=== PATIENT | female | born 1955 | race Caucasian/White ===

== ENCOUNTER 2021-01-18 13:35 | Inpatient (IN) | payer MEDICARE, MEDICAID ==
[2021-01-18 14:47] LABS: #Basophils 0.1 10x3/uL (0.0-0.2); #Eosinphils 0.2 10x3/uL (0.0-0.5); #Monocytes 0.5 10x3/uL (0.0-1.1); #Neutrophils 7.1 10x3/uL (1.5-8.4); %Basophils 0.9 % (0.0-2.0); %Eosinophils 2.3 % (0.0-6.0); %Lymphocytes 10.7 % (18.0-47.0); %Monocytes 5.9 % (0.0-10.0); %Neutrophils 79.4 % (40.0-75.0); Hemoglobin 14.4 g/dL (12.0-15.5); Mean Corpuscular HGB CONC 33.5 g/dL (32.0-36.0); Mean Corpuscular Hemoglobin 27.3 pg (27.0-33.0); Mean Corpuscular Volume 81.6 fl (81.6-98.3); Mean Platelet Volume 9.9 fl (7.4-10.4); Platelet Count 198 10x3/uL (150-450); RBC Distribution Width 15.5 % (11.5-14.5); Red Blood Cell (RBC) Count 5.27 10x6/uL (3.90-5.03); White Blood Cell (WBC) Count 8.9 10x3/uL (3.5-10.5)
[2021-01-18 14:55] LABS: ALT (SGPT) 15 U/L (8-55); AST (SGOT) 27 U/L (5-34); Albumin 3.3 g/dL (3.4-4.8); Alkaline Phosphatase 130 U/L (40-110); Anion Gap 17 mmol/L (10-20); BUN (Urea Nitrogen) 33 mg/dL (9.8-20.1); Bilirubin, Total 0.8 mg/dL (0.2-1.2); Calc. Creatinine Clearance 0 mL/min (70-130); Calcium 8.5 mg/dL (7.8-10.44); Carbon Dioxide 17 mmol/L (23-31); Chloride 99 mmol/L (98-107); Globulin 2.4 g/dL (2.4-3.5); Glucose 99 mg/dL (80-115); Potassium 5.8 mmol/L (3.5-5.1); Protein, Total 5.7 g/dL (5.8-8.1); Sodium 127 mmol/L (136-145)
[2021-01-18 15:02] LABS: Burr Cells SLIGHT = 2-5 cells (100X) (0-1/hpf); Elliptocytes SLIGHT = 2-5 cells (100X) (0-1/hpf); Large Platelets SLIGHT; Platelet Clumps SLIGHT
[2021-01-18 16:28] LABS: Bilirubin Neg (Negative); Blood, Urine 150 (Negative); Clarity Cloudy (Clear); Glucose, Urine (Dipstick) Normal (Negative); Ketone, Urine 5 mg/dL (Negative); Leukocyte 500 (Negative); Nitrite Positive (Negative); Protein, Urine (Dipstick) 100 mg/dl (Neg-Trace); Urobilinogen Normal mg/dL (Less than 2)
[2021-01-18 16:37] LABS: Bacteria/HPF 4+ HPF (None Seen); RBC/HPF 0-3 HPF (0-3); Squamous Epithelial None Seen HPF (0-3); WBC/HPF Greater than 50 HPF (0-3)
[2021-01-18] MEDS ORDERED: Ondansetron PF 4 MG/2 ML Vial IVP PRN (17:41)
[2021-01-18] MEDS ORDERED: Senokot S 8.6-50 MG TAB PO PRN (17:41)
[2021-01-18] MEDS ORDERED: Haloperidol Lactate 5 MG/ML VIAL SLOW IVP PRN (17:45)
[2021-01-18] MEDS ORDERED: Calcium Chloride 1 GM/10 ML Abboject SYRINGE ONE (17:57)
[2021-01-18] MEDS ORDERED: Insulin Regular 300 UNITS/3 ML VIAL ONE (17:57)
[2021-01-18] MEDS: MEROPENEM 1 GM/50 ML 1 GM in Premix Bag 1 BAG IVPB SCH (21:12)
[2021-01-18] MEDS: Sodium Chloride 0.9% 1,000 ML IV SCH (21:13)
[2021-01-19 00:13] VITALS: BMI 29.9
[2021-01-19] MEDS: MEROPENEM 1 GM/50 ML 1 GM in Premix Bag 1 BAG IVPB SCH ×3 (05:38→21:03)
[2021-01-19 05:45] LABS: #Basophils 0.1 10x3/uL (0.0-0.2); #Eosinphils 0.2 10x3/uL (0.0-0.5); #Monocytes 0.5 10x3/uL (0.0-1.1); #Neutrophils 5.6 10x3/uL (1.5-8.4); %Basophils 0.9 % (0.0-2.0); %Eosinophils 2.6 % (0.0-6.0); %Lymphocytes 13.1 % (18.0-47.0); %Monocytes 6.5 % (0.0-10.0); %Neutrophils 76.4 % (40.0-75.0); Hemoglobin 14.5 g/dL (12.0-15.5); Mean Corpuscular HGB CONC 32.7 g/dL (32.0-36.0); Mean Corpuscular Hemoglobin 27.4 pg (27.0-33.0); Mean Corpuscular Volume 83.7 fl (81.6-98.3); Mean Platelet Volume 9.5 fl (7.4-10.4); Platelet Count 184 10x3/uL (150-450); RBC Distribution Width 15.8 % (11.5-14.5); Red Blood Cell (RBC) Count 5.29 10x6/uL (3.90-5.03); White Blood Cell (WBC) Count 7.4 10x3/uL (3.5-10.5)
[2021-01-19] MEDS: Sodium Chloride 0.9% 1,000 ML IV SCH (05:45)
[2021-01-19 05:47] LABS: ALT (SGPT) 15 U/L (8-55); AST (SGOT) 25 U/L (5-34); Alkaline Phosphatase 114 U/L (40-110); Anion Gap 17 mmol/L (10-20); BUN (Urea Nitrogen) 23 mg/dL (9.8-20.1); Calc. Creatinine Clearance 86 mL/min (70-130); Calcium 9.2 mg/dL (7.8-10.44); Carbon Dioxide 17 mmol/L (23-31); Chloride 106 mmol/L (98-107); Globulin 2.6 g/dL (2.4-3.5); Glucose 89 mg/dL (80-115); Potassium 5.6 mmol/L (3.5-5.1); Protein, Total 5.6 g/dL (5.8-8.1); Sodium 134 mmol/L (136-145)
[2021-01-19] MEDS ORDERED: FLU VACC QS2020-21(65YR UP)/PF 240 MCG/0.7 ML SYRINGE IM ONE (06:45)
[2021-01-19] MEDS ORDERED: Sodium Chloride 0.9% 1,000 ML IV SCH (10:09)
[2021-01-19 13:48] LABS: SARS-CoV-2 PCR by NAA Not Detected (NotDetected)
[2021-01-19] MEDS ORDERED: Acetaminophen/Codeine 30-300mg Tablet PO PRN (16:39)
[2021-01-19] MEDS: Ferrous Sulfate 325 MG TAB PO SCH (17:21)
[2021-01-19] MEDS ORDERED: traZODone HCl 50 MG TAB PO SCH (21:00)
[2021-01-19] MEDS ORDERED: Atorvastatin Calcium 10 MG TAB PO SCH (21:00)
[2021-01-19] MEDS ORDERED: Pregabalin 75 MG CAP PO SCH (21:00)
[2021-01-19] MEDS ORDERED: Cholecalciferol 1,000 UNITS (25 MCG) TAB PO SCH (21:00)
[2021-01-19] MEDS ORDERED: Calcium Carbonate 500 MG ChewTAB PO SCH (21:00)
[2021-01-19] MEDS: Metoprolol Tartrate 25 MG TAB PO SCH (21:03)
[2021-01-19] MEDS: busPIRone HCl 5 MG TAB PO SCH (21:03)
[2021-01-19] MEDS: Oxybutynin 5 MG TAB PO SCH (21:03)
[2021-01-20] MEDS ORDERED: guaiFENesin 100 MG/5 ML UDCUP ONE (00:51)
[2021-01-20] MEDS: guaiFENesin 100 MG/5 ML UDCUP PO PRN ×2 (00:55→11:21)
[2021-01-20] MEDS ORDERED: hydrALAZINE 20 MG/ML VIAL SLOW IVP SCH (01:30)
[2021-01-20] MEDS ORDERED: Levothyroxine Sodium 75 MCG TAB PO SCH (06:00)
[2021-01-20] MEDS: MEROPENEM 1 GM/50 ML 1 GM in Premix Bag 1 BAG IVPB SCH ×2 (06:14→14:47)
[2021-01-20 07:43] LABS: #Basophils 0.1 10x3/uL (0.0-0.2); #Eosinphils 0.3 10x3/uL (0.0-0.5); #Monocytes 0.7 10x3/uL (0.0-1.1); #Neutrophils 5.2 10x3/uL (1.5-8.4); %Basophils 1.2 % (0.0-2.0); %Eosinophils 3.5 % (0.0-6.0); %Lymphocytes 15.9 % (18.0-47.0); %Monocytes 9.4 % (0.0-10.0); %Neutrophils 69.6 % (40.0-75.0); Hemoglobin 13.8 g/dL (12.0-15.5); Mean Corpuscular HGB CONC 32.1 g/dL (32.0-36.0); Mean Corpuscular Hemoglobin 27.2 pg (27.0-33.0); Mean Corpuscular Volume 84.6 fl (81.6-98.3); Mean Platelet Volume 9.7 fl (7.4-10.4); Platelet Count 198 10x3/uL (150-450); RBC Distribution Width 15.7 % (11.5-14.5); Red Blood Cell (RBC) Count 5.08 10x6/uL (3.90-5.03); White Blood Cell (WBC) Count 7.4 10x3/uL (3.5-10.5)
[2021-01-20] MEDS ORDERED: Spironolactone 25 MG TAB PO SCH (08:00)
[2021-01-20 08:28] LABS: ALT (SGPT) 20 U/L (8-55); AST (SGOT) 39 U/L (5-34); Albumin 2.8 g/dL (3.4-4.8); Alkaline Phosphatase 109 U/L (40-110); Anion Gap 13 mmol/L (10-20); BUN (Urea Nitrogen) 16 mg/dL (9.8-20.1); Bilirubin, Total 0.7 mg/dL (0.2-1.2); Calc. Creatinine Clearance 79 mL/min (70-130); Calcium 8.9 mg/dL (7.8-10.44); Carbon Dioxide 15 mmol/L (23-31); Chloride 115 mmol/L (98-107); Globulin 2.7 g/dL (2.4-3.5); Glucose 112 mg/dL (80-115); Potassium 5.4 mmol/L (3.5-5.1); Protein, Total 5.5 g/dL (5.8-8.1); Sodium 138 mmol/L (136-145)
[2021-01-20] MEDS: Ferrous Sulfate 325 MG TAB PO SCH (08:45)
[2021-01-20] MEDS: Metoprolol Tartrate 25 MG TAB PO SCH (08:46)
[2021-01-20] MEDS: Oxybutynin 5 MG TAB PO SCH (08:46)
[2021-01-20] MEDS: busPIRone HCl 5 MG TAB PO SCH ×2 (08:47→14:53)
[2021-01-20] MEDS ORDERED: DULoxetine 30 MG CAP PO SCH (09:00)
[2021-01-20] MEDS ORDERED: Aspirin 81 mg Enteric Coated Tablet PO SCH (09:00)
[2021-01-20] MEDS ORDERED: Docusate 100 MG CAP PO SCH (09:00)
[2021-01-20] MEDS ORDERED: Lisinopril 2.5 MG TAB PO SCH (09:00)
[2021-01-20] MEDS ORDERED: Furosemide 40 MG TAB PO SCH (09:00)
[2021-01-20] MEDS ORDERED: Pregabalin 50 MG CAP PO SCH (09:00)
[2021-01-20] MEDS ORDERED: Ascorbic Acid 500 mg Chewable Tablet PO SCH (09:00)
[2021-01-20] MEDS ORDERED: Fluticasone Propionate Nasal Spray 16 gm Bottle NASAL SCH (09:00)
[2021-01-20] MEDS ORDERED: LIDOCAINE 4% PATCH TD SCH (09:00)
[2021-01-20 12:22] VITALS: BP 137/61; TEMP 97
== END 2021-01-20 16:06 | DRG 441 ==
LOC: CSHERS 13:35 → CSHTELE 19:34
PROVIDERS: ADMIT Family Medicine; ATTEND Family Medicine
DX: K72.90 Hepatic failure, unspecified without coma (principal); G92 Toxic encephalopathy; N39.0 Urinary tract infection, site not specified; E87.1 Hypo-osmolality and hyponatremia; I85.00 Esophageal varices without bleeding; E87.5 Hyperkalemia; Z88.6 Allergy status to analgesic agent; Z88.0 Allergy status to penicillin; Z20.822 Contact with and (suspected) exposure to COVID-19; Z86.16 Personal history of COVID-19; Z89.612 Acquired absence of left leg above knee
CPT/HCPCS: 36415; 36416; 51701; 70450; 71045; 80053; 81003; 81015; 82140; 84443; 84484; 85025; 87635; 93005; 96365; 96375; J0360; J1815; J1956; J2185; J7050; U0003; U0005

== ENCOUNTER 2021-02-02 08:50 | Observation (INO) | payer MEDICARE, MEDICAID ==
[2021-02-02 09:41] LABS: #Basophils 0.1 10x3/uL (0.0-0.2); #Eosinphils 0.5 10x3/uL (0.0-0.5); #Monocytes 0.4 10x3/uL (0.0-1.1); #Neutrophils 4.2 10x3/uL (1.5-8.4); %Basophils 1.1 % (0.0-2.0); %Eosinophils 7.6 % (0.0-6.0); %Monocytes 6.2 % (0.0-10.0); %Neutrophils 67.9 % (40.0-75.0); Hemoglobin 13.9 g/dL (12.0-15.5); Mean Corpuscular HGB CONC 31.4 g/dL (32.0-36.0); Mean Corpuscular Hemoglobin 27.3 pg (27.0-33.0); Mean Corpuscular Volume 86.8 fl (81.6-98.3); Mean Platelet Volume 10.4 fl (7.4-10.4); Platelet Count 164 10x3/uL (150-450); RBC Distribution Width 15.3 % (11.5-14.5); Red Blood Cell (RBC) Count 5.09 10x6/uL (3.90-5.03); White Blood Cell (WBC) Count 6.2 10x3/uL (3.5-10.5)
[2021-02-02 09:53] LABS: ALT (SGPT) 20 U/L (8-55); AST (SGOT) 30 U/L (5-34); Albumin 3.5 g/dL (3.4-4.8); Alkaline Phosphatase 145 U/L (40-110); Anion Gap 18 mmol/L (10-20); BUN (Urea Nitrogen) 20 mg/dL (9.8-20.1); Bilirubin, Total 1.1 mg/dL (0.2-1.2); Calc. Creatinine Clearance 0 mL/min (70-130); Carbon Dioxide 24 mmol/L (23-31); Chloride 108 mmol/L (98-107); Globulin 2.4 g/dL (2.4-3.5); Glucose 88 mg/dL (80-115); Potassium 4.1 mmol/L (3.5-5.1); Protein, Total 5.9 g/dL (5.8-8.1); Sodium 146 mmol/L (136-145)
[2021-02-02 09:54] LABS: Acetaminophen Less than 6.0 mcg/mL (10.0-30.0); Alcohol Less than 10 mg/dL (Less than 10); CK (CPK) 34 U/L (29-168); Salicylate Less than 8.0 mg/dL (15.0-30.0)
[2021-02-02 10:13] LABS: Bilirubin Neg (Negative); Blood, Urine 25 (Negative); Clarity Cloudy (Clear); Glucose, Urine (Dipstick) Normal (Negative); Ketone, Urine Negative (Negative); Leukocyte 500 (Negative); Nitrite Negative (Negative); Protein, Urine (Dipstick) 30 mg/dl (Neg-Trace); Specific Gravity, Urine 1.005 (1.002-1.036)
[2021-02-02 10:23] LABS: Amphetamine Not Detected (NotDetected); Barbiturates Screen Not Detected (NotDetected); Benzodiazepine Screen Not Detected (NotDetected); Cocaine Metabolite Screen Not Detected (NotDetected); Methadone Not Detected (NotDetected); Methamphetamine Not Detected (NotDetected); Opiate Screen Detected (NotDetected); Oxycodone Screen Not Detected (NotDetected); Phencyclidine (PCP) Not Detected (NotDetected); THC/Cannabinoid Screen Not Detected (NotDetected); Tricyclic Screen Not Detected (NotDetected)
[2021-02-02 10:42] LABS: Bacteria/HPF 3+ HPF (None Seen); RBC/HPF 0-3 HPF (0-3); Squamous Epithelial 0-3 HPF (0-3); WBC/HPF Greater than 50 HPF (0-3)
[2021-02-02] MEDS ORDERED: Acetaminophen 325 MG TAB PO PRN (11:29)
[2021-02-02] MEDS ORDERED: Senokot S 8.6-50 MG TAB PO PRN (11:29)
[2021-02-02] MEDS ORDERED: Ondansetron PF 4 MG/2 ML Vial IVP PRN (11:29)
[2021-02-02 12:27] LABS: SARS-CoV-2 NAA Rapid Test Not Detected (NotDetected)
[2021-02-02] MEDS ORDERED: Sodium Chloride 0.9% 1,000 ML IV SCH (13:00)
[2021-02-02 15:19] VITALS: BMI 31.6
[2021-02-02] MEDS: Atorvastatin Calcium 10 MG TAB PO SCH (22:04)
[2021-02-02] MEDS: Ferrous Sulfate 325 MG TAB PO SCH (22:04)
[2021-02-02] MEDS: Metoprolol Tartrate 25 MG TAB PO SCH (22:05)
[2021-02-03] MEDS ORDERED: guaiFENesin 100 MG/5 ML UDCUP PO SCH (01:00)
[2021-02-03 04:34] LABS: #Basophils 0.1 10x3/uL (0.0-0.2); #Eosinphils 0.3 10x3/uL (0.0-0.5); #Monocytes 0.5 10x3/uL (0.0-1.1); #Neutrophils 3.8 10x3/uL (1.5-8.4); %Basophils 1.2 % (0.0-2.0); %Eosinophils 4.7 % (0.0-6.0); %Lymphocytes 21.5 % (18.0-47.0); %Monocytes 7.6 % (0.0-10.0); %Neutrophils 64.8 % (40.0-75.0); Hemoglobin 12.3 g/dL (12.0-15.5); Mean Corpuscular HGB CONC 32.8 g/dL (32.0-36.0); Mean Corpuscular Hemoglobin 28.3 pg (27.0-33.0); Mean Corpuscular Volume 86.2 fl (81.6-98.3); Mean Platelet Volume 11.1 fl (7.4-10.4); Platelet Count 139 10x3/uL (150-450); RBC Distribution Width 15.4 % (11.5-14.5); Red Blood Cell (RBC) Count 4.35 10x6/uL (3.90-5.03); White Blood Cell (WBC) Count 5.9 10x3/uL (3.5-10.5)
[2021-02-03 04:44] LABS: ALT (SGPT) 14 U/L (8-55); AST (SGOT) 17 U/L (5-34); Albumin 2.8 g/dL (3.4-4.8); Alkaline Phosphatase 108 U/L (40-110); Anion Gap 13 mmol/L (10-20); BUN (Urea Nitrogen) 20 mg/dL (9.8-20.1); Bilirubin, Total 0.9 mg/dL (0.2-1.2); Calc. Creatinine Clearance 90 mL/min (70-130); Calcium 8.5 mg/dL (7.8-10.44); Carbon Dioxide 23 mmol/L (23-31); Chloride 113 mmol/L (98-107); Glucose 75 mg/dL (80-115); Protein, Total 4.8 g/dL (5.8-8.1); Sodium 145 mmol/L (136-145)
[2021-02-03] MEDS: Enoxaparin Sodium 40 MG/0.4 ML SYRINGE SC SCH (10:17)
[2021-02-03] MEDS: Ferrous Sulfate 325 MG TAB PO SCH ×2 (10:18→22:03)
[2021-02-03] MEDS: guaiFENesin 100 MG/5 ML UDCUP PO PRN ×2 (10:19→17:51)
[2021-02-03] MEDS: Metoprolol Tartrate 25 MG TAB PO SCH ×2 (10:19→22:03)
[2021-02-03] MEDS: Levothyroxine Sodium 75 MCG TAB PO SCH (10:22)
[2021-02-03] MEDS ORDERED: DULoxetine 30 MG CAP PO SCH (12:30)
[2021-02-03] MEDS ORDERED: Acetaminophen 325 MG TAB PO PRN (13:05)
[2021-02-03] MEDS ORDERED: Pregabalin 75 MG CAP PO SCH ×2 (13:15→21:00)
[2021-02-03] MEDS ORDERED: traZODone HCl 50 MG TAB PO SCH (21:00)
[2021-02-03] MEDS: Atorvastatin Calcium 10 MG TAB PO SCH (22:03)
[2021-02-03] MEDS: Pregabalin 75 MG CAP PO SCH (22:04)
[2021-02-04] MEDS ORDERED: LIDOCAINE 4% TD SCH (09:00)
[2021-02-04] MEDS ORDERED: DULoxetine 30 MG CAP PO SCH (09:00)
[2021-02-04] MEDS: Levothyroxine Sodium 75 MCG TAB PO SCH (10:11)
[2021-02-04] MEDS: Pregabalin 75 MG CAP PO SCH (10:12)
[2021-02-04] MEDS: Ferrous Sulfate 325 MG TAB PO SCH (10:13)
[2021-02-04] MEDS: Metoprolol Tartrate 25 MG TAB PO SCH (10:14)
[2021-02-04] MEDS: Enoxaparin Sodium 40 MG/0.4 ML SYRINGE SC SCH (10:15)
[2021-02-04] MEDS ORDERED: Lorazepam 2 MG/ML VIAL SLOW IVP SCH (13:30)
[2021-02-04 20:05] VITALS: BP 152/66; TEMP 98.2
== END 2021-02-04 15:48 | disposition home or self-care (01) ==
LOC: CSHERS 08:50 → CSHTELE 11:00 → UNDOADMOB 14:06 → CSHTELE 14:06 → INTOOBSV 14:06
PROVIDERS: ADMIT Internal Medicine; ATTEND Internal Medicine
DX: R41.82 Altered mental status, unspecified (principal); N39.0 Urinary tract infection, site not specified; K70.30 Alcoholic cirrhosis of liver without ascites; F32.9 Major depressive disorder, single episode, unspecified; F41.9 Anxiety disorder, unspecified; G89.29 Other chronic pain; I10 Essential (primary) hypertension; E03.9 Hypothyroidism, unspecified; Z79.899 Other long term (current) drug therapy; Z20.822 Contact with and (suspected) exposure to COVID-19
CPT/HCPCS: 51701; 70450; 71045; 80053; 80306; 80307; 82140 ×2; 82550; 83605; 84484; 85025; 87040; 93005; 96365; 96372 ×2; 96376 ×2; 99285; G0378 ×4; U0002; 36415; 81003; 81015; 84443; J1650; J1956

== ENCOUNTER 2021-03-02 13:28 | Inpatient (IN) | payer MEDICARE, MEDICAID ==
[2021-03-02 14:18] LABS: Actual Bicarbonate (HCO3a) 20.3 mEq/L (22-28); Base Excess (BEa) -2.5 mEq/L (-2.0 to +3.0); CO2 Tension 29.9 mmHg (35.0-45.0); Calcium, Ionized (arterial) 1.18 mmol/L (1.12-1.30); Carboxyhemoglobin (COHb) 0.9 gm% (0.0-3.0); Hemoglobin (Hb) 14.4 g/dL (12.0-16.0); O2 Tension (PaO2), arterial 100.2 mmHg (> 80.0); Puncture Site RBA; pH, Arterial 7.45 (7.35-7.45)
[2021-03-02 14:22] LABS: ALV-art Gradient 12.155 mmHg (0-20)
[2021-03-02 14:30] LABS: #Basophils 0.1 10x3/uL (0.0-0.2); #Eosinphils 0.3 10x3/uL (0.0-0.5); #Monocytes 0.6 10x3/uL (0.0-1.1); #Neutrophils 5.4 10x3/uL (1.5-8.4); %Eosinophils 3.5 % (0.0-6.0); %Lymphocytes 18.2 % (18.0-47.0); %Monocytes 8.2 % (0.0-10.0); %Neutrophils 68.8 % (40.0-75.0); Hemoglobin 14.2 g/dL (12.0-15.5); Mean Corpuscular HGB CONC 32.3 g/dL (32.0-36.0); Mean Corpuscular Hemoglobin 28.3 pg (27.0-33.0); Mean Corpuscular Volume 87.6 fl (81.6-98.3); Mean Platelet Volume 11.9 fl (7.4-10.4); Platelet Count 122 10x3/uL (150-450); RBC Distribution Width 15.9 % (11.5-14.5); Red Blood Cell (RBC) Count 5.01 10x6/uL (3.90-5.03); White Blood Cell (WBC) Count 7.8 10x3/uL (3.5-10.5)
[2021-03-02 15:01] LABS: Platelet Morphology Comment Appears Adequate
[2021-03-02 16:12] LABS: ALT (SGPT) 12 U/L (8-55); AST (SGOT) 19 U/L (5-34); Acetaminophen Less than 6.0 mcg/mL (10.0-30.0); Albumin 2.8 g/dL (3.4-4.8); Alcohol Less than 10 mg/dL (Less than 10); Alkaline Phosphatase 137 U/L (40-110); Anion Gap 15 mmol/L (10-20); BUN (Urea Nitrogen) 16 mg/dL (9.8-20.1); Bilirubin, Total 1.4 mg/dL (0.2-1.2); Calc. Creatinine Clearance 0 mL/min (70-130); Calcium 9.1 mg/dL (7.8-10.44); Carbon Dioxide 23 mmol/L (23-31); Chloride 113 mmol/L (98-107); Globulin 2.3 g/dL (2.4-3.5); Glucose 96 mg/dL (80-115); Magnesium 1.4 mg/dL (1.6-2.6); Potassium 4.1 mmol/L (3.5-5.1); Protein, Total 5.1 g/dL (5.8-8.1); Salicylate Less than 8.0 mg/dL (15.0-30.0); Sodium 147 mmol/L (136-145)
[2021-03-02] MEDS ORDERED: Magnesium 2 GM/50 ML BAG (IN WATER) ONE (16:50)
[2021-03-02] MEDS ORDERED: Ondansetron PF 4 MG/2 ML Vial IVP PRN (18:30)
[2021-03-02] MEDS ORDERED: Ondansetron ODT 4 MG TAB PO PRN (18:30)
[2021-03-02] MEDS ORDERED: cefTRIAXone\\ROCEPHIN 1 GM in Sodium Chloride 0.9% 100 ML IVPB SCH (18:45)
[2021-03-02] MEDS ORDERED: Azithromycin 500 MG in Sodium Chloride 0.9% 250 ML 250 ML IVPB SCH (18:45)
[2021-03-02 19:15] VITALS: BMI 23.7
[2021-03-02] MEDS: Sodium Chloride 0.9% 1,000 ML IV SCH (20:18)
[2021-03-02] MEDS: Atorvastatin Calcium 10 MG TAB PO SCH (20:20)
[2021-03-02 21:06] LABS: INR-International Normal Ratio 1.2; PTT 22.3 sec (22.0-33.0); Prothrombin Time 13.3 sec (9.5-12.1)
[2021-03-03 02:02] LABS: Bilirubin Neg (Negative); Blood, Urine 10 (Negative); Clarity Cloudy (Clear); Glucose, Urine (Dipstick) Normal (Negative); Ketone, Urine Negative (Negative); Leukocyte 25 (Negative); Nitrite Negative (Negative); Protein, Urine (Dipstick) 100 mg/dl (Neg-Trace); Urobilinogen Normal mg/dL (Less than 2); pH, Urine 6.5 (5.0-9.0)
[2021-03-03 03:17] LABS: Bacteria/HPF 4+ HPF (None Seen); RBC/HPF 0-3 HPF (0-3); Squamous Epithelial 0-3 HPF (0-3)
[2021-03-03 03:18] LABS: Transitional Epithelial 0-3 HPF (None Seen)
[2021-03-03 05:15] LABS: #Basophils 0.1 10x3/uL (0.0-0.2); #Eosinphils 0.3 10x3/uL (0.0-0.5); #Monocytes 0.5 10x3/uL (0.0-1.1); %Basophils 1.1 % (0.0-2.0); %Eosinophils 4.4 % (0.0-6.0); %Lymphocytes 22.7 % (18.0-47.0); %Monocytes 8.3 % (0.0-10.0); %Neutrophils 63.3 % (40.0-75.0); Hemoglobin 12.8 g/dL (12.0-15.5); Mean Corpuscular HGB CONC 31.4 g/dL (32.0-36.0); Mean Corpuscular Hemoglobin 28.1 pg (27.0-33.0); Mean Corpuscular Volume 89.5 fl (81.6-98.3); Mean Platelet Volume 11.1 fl (7.4-10.4); Platelet Count 130 10x3/uL (150-450); RBC Distribution Width 15.8 % (11.5-14.5); Red Blood Cell (RBC) Count 4.56 10x6/uL (3.90-5.03); White Blood Cell (WBC) Count 6.4 10x3/uL (3.5-10.5)
[2021-03-03 05:19] LABS: ALT (SGPT) 10 U/L (8-55); AST (SGOT) 15 U/L (5-34); Albumin 2.5 g/dL (3.4-4.8); Alkaline Phosphatase 114 U/L (40-110); Anion Gap 15 mmol/L (10-20); BUN (Urea Nitrogen) 17 mg/dL (9.8-20.1); Bilirubin, Total 1.1 mg/dL (0.2-1.2); Calc. Creatinine Clearance 68 mL/min (70-130); Calcium 8.5 mg/dL (7.8-10.44); Carbon Dioxide 21 mmol/L (23-31); Chloride 113 mmol/L (98-107); Glucose 82 mg/dL (80-115); Magnesium 1.8 mg/dL (1.6-2.6); Potassium 4.1 mmol/L (3.5-5.1); Protein, Total 4.5 g/dL (5.8-8.1); Sodium 145 mmol/L (136-145)
[2021-03-03] MEDS: Sodium Chloride 0.9% 1,000 ML IV SCH (06:25)
[2021-03-03] MEDS: Levothyroxine Sodium 75 MCG TAB PO SCH (06:25)
[2021-03-03] MEDS: Aspirin 81 mg Enteric Coated Tablet PO SCH (08:10)
[2021-03-03] MEDS: Enoxaparin Sodium 40 MG/0.4 ML SYRINGE SC SCH (08:10)
[2021-03-03] MEDS: Atorvastatin Calcium 10 MG TAB PO SCH (20:26)
[2021-03-03] MEDS: Metoprolol Tartrate 25 MG TAB PO SCH (20:26)
[2021-03-03 20:40] LABS: SARS-CoV-2 PCR by NAA Not Detected (NotDetected)
[2021-03-04] MEDS ORDERED: Labetalol HCl 100 MG/20 ML VIAL SLOW IVP SCH (01:00)
[2021-03-04] MEDS ORDERED: hydrALAZINE 20 MG/ML VIAL SLOW IVP SCH (03:45)
[2021-03-04] MEDS ORDERED: Nitroglycerin 0.4 MG TAB (25 Tab Bottle) ONE (05:20)
[2021-03-04] MEDS: Levothyroxine Sodium 75 MCG TAB PO SCH (05:34)
[2021-03-04] MEDS: Sodium Chloride 0.9% 1,000 ML IV SCH (07:39)
[2021-03-04] MEDS ORDERED: cloNIDine 0.1 MG TAB PO SCH (09:00)
[2021-03-04] MEDS ORDERED: Furosemide 40 MG TAB PO SCH (09:00)
[2021-03-04] MEDS: Enoxaparin Sodium 40 MG/0.4 ML SYRINGE SC SCH (09:05)
[2021-03-04] MEDS: Metoprolol Tartrate 25 MG TAB PO SCH (09:05)
[2021-03-04] MEDS: Aspirin 81 mg Enteric Coated Tablet PO SCH (09:05)
[2021-03-04 11:47] VITALS: BP 184/69; TEMP 97.9
== END 2021-03-04 12:11 | DRG 441 ==
LOC: CSHERS 13:28 → CSHTELE 19:10
PROVIDERS: ADMIT Family Medicine; ATTEND Family Medicine
DX: K72.90 Hepatic failure, unspecified without coma (principal); J18.9 Pneumonia, unspecified organism; J96.01 Acute respiratory failure with hypoxia; E87.0 Hyperosmolality and hypernatremia; Z20.822 Contact with and (suspected) exposure to COVID-19; Z89.612 Acquired absence of left leg above knee; E03.9 Hypothyroidism, unspecified; F41.9 Anxiety disorder, unspecified; F32.9 Major depressive disorder, single episode, unspecified; M54.5 Low back pain; Z79.890 Hormone replacement therapy; Z79.891 Long term (current) use of opiate analgesic; Z79.899 Other long term (current) drug therapy; Z79.82 Long term (current) use of aspirin; M19.90 Unspecified osteoarthritis, unspecified site; Z87.11 Personal history of peptic ulcer disease; E78.5 Hyperlipidemia, unspecified; Z87.891 Personal history of nicotine dependence; E83.42 Hypomagnesemia; Z88.6 Allergy status to analgesic agent; Z88.0 Allergy status to penicillin; Z88.8 Allergy status to other drugs, medicaments and biological substances
CPT/HCPCS: 36415; 36600; 70450; 71045; 80053; 80307; 81001; 82140; 82805; 83605; 83735; 84443; 84484; 85025; 85610; 85730; 87040; 87635; 93005; 93010; 94760; 96365; 96366; J0360; J1650; J1956; J3475; J7050; U0003; U0005

== ENCOUNTER 2021-06-09 05:50 | Emergency (ER) | payer MEDICARE, MEDICAID ==
[2021-06-09] MEDS ORDERED: Acetaminophen 500 MG TAB ONE (08:49)
== END 2021-06-09 10:30 | disposition home or self-care (01) ==
LOC: CSHERS 05:50
DX: S02.2XXA Fracture of nasal bones, initial encounter for closed fracture (principal); S09.90XA Unspecified injury of head, initial encounter; I10 Essential (primary) hypertension; M19.90 Unspecified osteoarthritis, unspecified site; E03.9 Hypothyroidism, unspecified; J44.9 Chronic obstructive pulmonary disease, unspecified; E78.5 Hyperlipidemia, unspecified; Z87.891 Personal history of nicotine dependence; Z87.19 Personal history of other diseases of the digestive system; Z79.82 Long term (current) use of aspirin; Z79.899 Other long term (current) drug therapy; W06.XXXA Fall from bed, initial encounter
CPT/HCPCS: 70450; 70486; 72125

== ENCOUNTER 2021-09-23 15:27 | Inpatient (IN) | payer MEDICARE, MEDICAID ==
[2021-09-23 16:10] LABS: #Basophils 0.1 10x3/uL (0.0-0.2); #Eosinphils 0.2 10x3/uL (0.0-0.5); #Monocytes 0.4 10x3/uL (0.0-1.1); #Neutrophils 3.7 10x3/uL (1.5-8.4); %Basophils 1.2 % (0.0-2.0); %Eosinophils 2.9 % (0.0-6.0); %Lymphocytes 24.3 % (18.0-47.0); %Monocytes 7.4 % (0.0-10.0); %Neutrophils 63.9 % (40.0-75.0); Hemoglobin 6.2 g/dL (12.0-15.5); Mean Corpuscular HGB CONC 30.5 g/dL (32.0-36.0); Mean Corpuscular Hemoglobin 27.8 pg (27.0-33.0); Mean Platelet Volume 11.4 fl (7.4-10.4); Platelet Count 209 10x3/uL (150-450); RBC Distribution Width 17.4 % (11.5-14.5); Red Blood Cell (RBC) Count 2.23 10x6/uL (3.90-5.03); White Blood Cell (WBC) Count 5.8 10x3/uL (3.5-10.5)
[2021-09-23 16:30] LABS: ALT (SGPT) 14 U/L (8-55); AST (SGOT) 19 U/L (5-34); Albumin 2.5 g/dL (3.4-4.8); Alkaline Phosphatase 75 U/L (40-110); Anion Gap 11 mmol/L (10-20); BUN (Urea Nitrogen) 26 mg/dL (9.8-20.1); Bilirubin, Total 0.6 mg/dL (0.2-1.2); Calc. Creatinine Clearance 0 mL/min (70-130); Calcium 8.2 mg/dL (7.8-10.44); Carbon Dioxide 20 mmol/L (23-31); Chloride 119 mmol/L (98-107); Glucose 91 mg/dL (80-115); Lipase 22 U/L (8-78); Potassium 4.7 mmol/L (3.5-5.1); Protein, Total 4.5 g/dL (5.8-8.1); Sodium 145 mmol/L (136-145)
[2021-09-23 17:02] LABS: Bilirubin Neg (Negative); Blood, Urine Negative (Negative); Clarity Clear (Clear); Glucose, Urine (Dipstick) Normal (Negative); Ketone, Urine Negative (Negative); Leukocyte Negative (Negative); Nitrite Negative (Negative); Protein, Urine (Dipstick) Negative (Neg-Trace); Urobilinogen Normal mg/dL (Less than 2)
[2021-09-23 17:31] LABS: PTT 20.8 sec (22.0-33.0); Prothrombin Time 11.5 sec (9.5-12.1)
[2021-09-23 17:42] LABS: Iron 17 ug/dL (50-170); Iron Binding Capacity, Total 255 mcg/dL (265-497)
[2021-09-23] MEDS ORDERED: Calcium Carbonate 500 MG ChewTAB PO PRN (20:19)
[2021-09-23] MEDS ORDERED: Ondansetron PF 4 MG/2 ML Vial IVP PRN (20:19)
[2021-09-23] MEDS ORDERED: Acetaminophen 325 MG TAB PO PRN (20:19)
[2021-09-23] MEDS ORDERED: Dextrose 5% in Water 1,000 ML IV PRN (20:22)
[2021-09-23] MEDS ORDERED: Dextrose 50% Abboject 50 ML SYRINGE SLOW IVP PRN (20:22)
[2021-09-23] MEDS ORDERED: Furosemide 20 MG/2 ML VIAL SLOW IVP SCH (21:30)
[2021-09-23] MEDS: Octreotide Acetate 1,250 MCG in Sodium Chloride 0.9% 250 ML 250 ML IVPB SCH (22:03)
[2021-09-23] MEDS: Pantoprazole 80 MG, Admixture Fee 1 EACH in Sodium Chloride 0.9% 100 ML IVPB SCH (22:03)
[2021-09-23] MEDS: Metoprolol Tartrate 25 MG TAB PO SCH (22:03)
[2021-09-23] MEDS: Thiamine HCl 200 MG/2 ML VIAL SLOW IVP SCH (22:04)
[2021-09-23] MEDS: D5 1/4 NS 1,000 ML IV SCH (22:07)
[2021-09-23 23:58] LABS: #Basophils 0.1 10x3/uL (0.0-0.2); #Eosinphils 0.2 10x3/uL (0.0-0.5); #Monocytes 0.7 10x3/uL (0.0-1.1); #Neutrophils 3.7 10x3/uL (1.5-8.4); %Basophils 1.3 % (0.0-2.0); %Eosinophils 3.7 % (0.0-6.0); %Monocytes 10.4 % (0.0-10.0); %Neutrophils 58.6 % (40.0-75.0); Mean Corpuscular HGB CONC 31.7 g/dL (32.0-36.0); Mean Corpuscular Hemoglobin 27.9 pg (27.0-33.0); Mean Corpuscular Volume 87.8 fl (81.6-98.3); Mean Platelet Volume 11.8 fl (7.4-10.4); RBC Distribution Width 16.2 % (11.5-14.5); Red Blood Cell (RBC) Count 2.87 10x6/uL (3.90-5.03); White Blood Cell (WBC) Count 6.3 10x3/uL (3.5-10.5)
[2021-09-24 00:03] LABS: Platelet Count 162 10x3/uL (150-450)
[2021-09-24 04:35] LABS: #Basophils 0.1 10x3/uL (0.0-0.2); #Eosinphils 0.2 10x3/uL (0.0-0.5); #Monocytes 0.5 10x3/uL (0.0-1.1); %Basophils 1.4 % (0.0-2.0); %Eosinophils 3.5 % (0.0-6.0); %Lymphocytes 22.2 % (18.0-47.0); %Monocytes 8.5 % (0.0-10.0); %Neutrophils 64.2 % (40.0-75.0); Hemoglobin 8.9 g/dL (12.0-15.5); Mean Corpuscular HGB CONC 31.7 g/dL (32.0-36.0); Mean Corpuscular Hemoglobin 29.1 pg (27.0-33.0); Mean Corpuscular Volume 91.8 fl (81.6-98.3); Mean Platelet Volume 11.6 fl (7.4-10.4); Platelet Count 149 10x3/uL (150-450); RBC Distribution Width 16.2 % (11.5-14.5); Red Blood Cell (RBC) Count 3.06 10x6/uL (3.90-5.03); White Blood Cell (WBC) Count 6.2 10x3/uL (3.5-10.5)
[2021-09-24 04:41] LABS: ALT (SGPT) 13 U/L (8-55); AST (SGOT) 19 U/L (5-34); Albumin 2.4 g/dL (3.4-4.8); Alkaline Phosphatase 72 U/L (40-110); Anion Gap 13 mmol/L (10-20); BUN (Urea Nitrogen) 25 mg/dL (9.8-20.1); Bilirubin, Total 1.1 mg/dL (0.2-1.2); Calc. Creatinine Clearance 65 mL/min (70-130); Calcium 8.1 mg/dL (7.8-10.44); Carbon Dioxide 18 mmol/L (23-31); Chloride 119 mmol/L (98-107); Globulin 1.8 g/dL (2.4-3.5); Glucose 95 mg/dL (80-115); Potassium 4.4 mmol/L (3.5-5.1); Protein, Total 4.2 g/dL (5.8-8.1); Sodium 146 mmol/L (136-145)
[2021-09-24] MEDS: Pantoprazole 80 MG, Admixture Fee 1 EACH in Sodium Chloride 0.9% 100 ML IVPB SCH (07:55)
[2021-09-24] MEDS: Folic Acid 1 MG TAB PO SCH (09:35)
[2021-09-24] MEDS: Metoprolol Tartrate 25 MG TAB PO SCH ×2 (09:35→20:35)
[2021-09-24] MEDS: Furosemide 20 MG/2 ML VIAL SLOW IVP SCH (09:35)
[2021-09-24] MEDS: Multivit, Therapeutic 1 TAB PO SCH (09:35)
[2021-09-24] MEDS: Lidocaine 5% Patch TD SCH (09:36)
[2021-09-24 10:01] LABS: #Basophils 0.1 10x3/uL (0.0-0.2); #Eosinphils 0.3 10x3/uL (0.0-0.5); #Monocytes 0.3 10x3/uL (0.0-1.1); #Neutrophils 3.5 10x3/uL (1.5-8.4); %Basophils 1.2 % (0.0-2.0); %Monocytes 6.5 % (0.0-10.0); %Neutrophils 70.1 % (40.0-75.0); Hemoglobin 8.5 g/dL (12.0-15.5); Mean Corpuscular Hemoglobin 28.4 pg (27.0-33.0); Mean Corpuscular Volume 91.6 fl (81.6-98.3); Mean Platelet Volume 11.4 fl (7.4-10.4); Platelet Count 103 10x3/uL (150-450); RBC Distribution Width 16.3 % (11.5-14.5); Red Blood Cell (RBC) Count 2.99 10x6/uL (3.90-5.03); White Blood Cell (WBC) Count 5.1 10x3/uL (3.5-10.5)
[2021-09-24] MEDS ORDERED: Lidocaine 1% PF 5 ML VIAL ONE (12:03)
[2021-09-24] MEDS ORDERED: PROPOFOL 20 ML ONE (12:03)
[2021-09-24 12:43] LABS: Platelet Morphology Comment Appears Decreased
[2021-09-24 12:48] LABS: RBC Morphology Normal
[2021-09-24] MEDS ORDERED: GoLYTELY 4,000 ml Bottle PO SCH (13:00)
[2021-09-24] MEDS: Pregabalin 75 MG CAP PO SCH (20:33)
[2021-09-24] MEDS: Atorvastatin Calcium 10 MG TAB PO SCH (20:35)
[2021-09-24] MEDS: Thiamine HCl 200 MG/2 ML VIAL SLOW IVP SCH (20:38)
[2021-09-24] MEDS: Transdermal Patch Removal TOP SCH (22:07)
[2021-09-25] MEDS: Octreotide Acetate 1,250 MCG in Sodium Chloride 0.9% 250 ML 250 ML IVPB SCH (01:57)
[2021-09-25 05:33] VITALS: BMI 22.9
[2021-09-25 06:09] LABS: Anion Gap 12 mmol/L (10-20); BUN (Urea Nitrogen) 22 mg/dL (9.8-20.1); Calc. Creatinine Clearance 57 mL/min (70-130); Calcium 7.5 mg/dL (7.8-10.44); Carbon Dioxide 17 mmol/L (23-31); Chloride 116 mmol/L (98-107); Glucose 140 mg/dL (80-115); Potassium 3.9 mmol/L (3.5-5.1); Sodium 141 mmol/L (136-145)
[2021-09-25 06:24] LABS: #Basophils 0.1 10x3/uL (0.0-0.2); #Eosinphils 0.3 10x3/uL (0.0-0.5); #Monocytes 0.6 10x3/uL (0.0-1.1); #Neutrophils 4.6 10x3/uL (1.5-8.4); %Lymphocytes 17.1 % (18.0-47.0); %Monocytes 9.3 % (0.0-10.0); %Neutrophils 67.3 % (40.0-75.0); Hemoglobin 8.6 g/dL (12.0-15.5); Mean Corpuscular HGB CONC 32.7 g/dL (32.0-36.0); Mean Corpuscular Hemoglobin 29.1 pg (27.0-33.0); Mean Corpuscular Volume 88.9 fl (81.6-98.3); Mean Platelet Volume 11.7 fl (7.4-10.4); Platelet Count 151 10x3/uL (150-450); RBC Distribution Width 15.9 % (11.5-14.5); Red Blood Cell (RBC) Count 2.96 10x6/uL (3.90-5.03); White Blood Cell (WBC) Count 6.8 10x3/uL (3.5-10.5)
[2021-09-25] MEDS: Pregabalin 75 MG CAP PO SCH ×2 (11:07→17:54)
[2021-09-25] MEDS: Pantoprazole 40 MG VIAL IVP SCH (11:07)
[2021-09-25] MEDS: Lidocaine 5% Patch TD SCH (11:07)
[2021-09-25] MEDS: Docusate 100 MG CAP PO SCH (11:32)
[2021-09-25] MEDS: DULoxetine 30 MG CAP PO SCH (11:32)
[2021-09-25] MEDS: Metoprolol Tartrate 25 MG TAB PO SCH ×2 (11:32→20:18)
[2021-09-25] MEDS: Folic Acid 1 MG TAB PO SCH (11:32)
[2021-09-25] MEDS: Multivit, Therapeutic 1 TAB PO SCH (11:33)
[2021-09-25] MEDS: Levothyroxine Sodium 75 MCG TAB PO SCH (11:33)
[2021-09-25] MEDS: Furosemide 20 MG/2 ML VIAL SLOW IVP SCH (12:01)
[2021-09-25] MEDS: D5 1/4 NS 1,000 ML IV SCH (12:01)
[2021-09-25] MEDS ORDERED: PROPOFOL 40 ML ONE (13:24)
[2021-09-25] MEDS ORDERED: Lidocaine 1% PF 5 ML VIAL ONE (13:24)
[2021-09-25] MEDS ORDERED: ePHEDrine Sulfate 50 MG/10 ML VIAL ONE (13:46)
[2021-09-25 15:42] LABS: HBCM Index 0.07 S/CO (0-0.79); HBSAg Index 0.27 S/CO (0-0.99); Hep A IgM AB Non-Reactive (NonReactive); Hep A IgM S/CO 0.07 S/CO (0-0.79); Hep B Surf Ag Non-Reactive S/CO (NonReactive); Hep C IgG Ab Non-Reactive (NonReactive); Hep C Index 0.07 S/CO (0-0.79); Hepatitis B Core IgM Abs Non-Reactive (NonReactive)
[2021-09-25] MEDS: Guaifenesin DM 100-10/5 ML UDCUP PO PRN (18:12)
[2021-09-25] MEDS: Atorvastatin Calcium 10 MG TAB PO SCH (20:18)
[2021-09-25] MEDS: Thiamine HCl 200 MG/2 ML VIAL SLOW IVP SCH (20:19)
[2021-09-25] MEDS: Transdermal Patch Removal TOP SCH (20:20)
[2021-09-26] MEDS ORDERED: traMADol HCl 50 MG TAB PO SCH (00:45)
[2021-09-26] MEDS: Guaifenesin DM 100-10/5 ML UDCUP PO PRN (02:12)
[2021-09-26] MEDS: Docusate 100 MG CAP PO SCH (08:03)
[2021-09-26] MEDS: DULoxetine 30 MG CAP PO SCH (08:03)
[2021-09-26] MEDS: Pantoprazole 40 MG VIAL IVP SCH (08:03)
[2021-09-26] MEDS: Lidocaine 5% Patch TD SCH (08:03)
[2021-09-26] MEDS: Pregabalin 75 MG CAP PO SCH (08:04)
[2021-09-26] MEDS: Folic Acid 1 MG TAB PO SCH (08:04)
[2021-09-26] MEDS: Levothyroxine Sodium 75 MCG TAB PO SCH (08:04)
[2021-09-26] MEDS: Multivit, Therapeutic 1 TAB PO SCH (08:04)
[2021-09-26] MEDS: Metoprolol Tartrate 25 MG TAB PO SCH (08:04)
[2021-09-26] MEDS: Octreotide Acetate 1,250 MCG in Sodium Chloride 0.9% 250 ML 250 ML IVPB SCH (08:19)
[2021-09-26 15:26] VITALS: BP 126/60; TEMP 98
== END 2021-09-26 17:20 | disposition home or self-care (01) | DRG 377 ==
LOC: CSHERS 15:27 → CSHICU 15:28 → CSHTELE 09-25 10:42
PROVIDERS: ADMIT Student in an Organized Health Care Education/Training Program; ATTEND Family Medicine
PROC: 30233N1 Transfusion of Nonautologous Red Blood Cells into Peripheral Vein, Percutaneous Approach (ICD-10-PCS; 2021-09-23)
PROC: 0DB98ZX Excision of Duodenum, Via Natural or Artificial Opening Endoscopic, Diagnostic (ICD-10-PCS; principal; 2021-09-24)
PROC: 0DJD8ZZ Inspection of Lower Intestinal Tract, Via Natural or Artificial Opening Endoscopic (ICD-10-PCS; 2021-09-25)
DX: K29.71 Gastritis, unspecified, with bleeding (principal); G93.41 Metabolic encephalopathy; E87.2 Acidosis; K76.6 Portal hypertension; D62 Acute posthemorrhagic anemia; E44.0 Moderate protein-calorie malnutrition; I50.32 Chronic diastolic (congestive) heart failure; I85.10 Secondary esophageal varices without bleeding; M19.90 Unspecified osteoarthritis, unspecified site; G89.29 Other chronic pain; J44.9 Chronic obstructive pulmonary disease, unspecified; E03.9 Hypothyroidism, unspecified; Z96.652 Presence of left artificial knee joint; F41.9 Anxiety disorder, unspecified; F32.A Depression, unspecified; F43.10 Post-traumatic stress disorder, unspecified; K72.90 Hepatic failure, unspecified without coma; K21.9 Gastro-esophageal reflux disease without esophagitis; K70.30 Alcoholic cirrhosis of liver without ascites; E78.2 Mixed hyperlipidemia; D63.8 Anemia in other chronic diseases classified elsewhere; I11.0 Hypertensive heart disease with heart failure; K31.89 Other diseases of stomach and duodenum; I86.4 Gastric varices; I35.0 Nonrheumatic aortic (valve) stenosis; Z90.49 Acquired absence of other specified parts of digestive tract; Z89.612 Acquired absence of left leg above knee; Z87.891 Personal history of nicotine dependence; Z88.0 Allergy status to penicillin; Z88.8 Allergy status to other drugs, medicaments and biological substances; Z79.899 Other long term (current) drug therapy; Z86.711 Personal history of pulmonary embolism; Z86.718 Personal history of other venous thrombosis and embolism; Z68.23 Body mass index [BMI] 23.0-23.9, adult
CPT/HCPCS: 36415; 36416; 36430; 51701; 70450; 71045; 76705; 80048; 80053; 80074; 81003; 82140; 82274; 82728; 83540; 83550; 83690; 84443; 85025; 85610; 85730; 86850; 86900; 86901; 88305; 93005; 93010; C9113; J1940; J1956; J2354; J2704; J3411; J3490; J7042; J7050; P9016

== ENCOUNTER 2021-10-23 22:40 | Inpatient (IN) | payer MEDICARE, MEDICAID ==
[2021-10-23 23:44] LABS: #Eosinphils 0.1 10x3/uL (0.0-0.5); #Monocytes 0.5 10x3/uL (0.0-1.1); #Neutrophils 5.8 10x3/uL (1.5-8.4); %Basophils 0.6 % (0.0-2.0); %Eosinophils 0.7 % (0.0-6.0); %Lymphocytes 8.7 % (18.0-47.0); %Monocytes 6.7 % (0.0-10.0); %Neutrophils 83.2 % (40.0-75.0); Hemoglobin 11.5 g/dL (12.0-15.5); Mean Corpuscular HGB CONC 30.7 g/dL (32.0-36.0); Mean Corpuscular Hemoglobin 26.9 pg (27.0-33.0); Mean Corpuscular Volume 87.6 fl (81.6-98.3); Mean Platelet Volume 11.5 fl (7.4-10.4); Platelet Count 156 10x3/uL (150-450); RBC Distribution Width 16.3 % (11.5-14.5); Red Blood Cell (RBC) Count 4.27 10x6/uL (3.90-5.03)
[2021-10-24 00:04] LABS: ALT (SGPT) 12 U/L (8-55); AST (SGOT) 24 U/L (5-34); Albumin 2.8 g/dL (3.4-4.8); Alkaline Phosphatase 114 U/L (40-110); Anion Gap 14 mmol/L (10-20); BUN (Urea Nitrogen) 30 mg/dL (9.8-20.1); Bilirubin, Total 0.8 mg/dL (0.2-1.2); Calc. Creatinine Clearance 0 mL/min (70-130); Carbon Dioxide 18 mmol/L (23-31); Chloride 112 mmol/L (98-107); Globulin 2.5 g/dL (2.4-3.5); Glucose 94 mg/dL (80-115); Potassium 4.7 mmol/L (3.5-5.1); Protein, Total 5.3 g/dL (5.8-8.1); Sodium 139 mmol/L (136-145)
[2021-10-24 01:18] LABS: Bilirubin Neg (Negative); Blood, Urine 150 (Negative); Clarity Cloudy (Clear); Glucose, Urine (Dipstick) Normal (Negative); Ketone, Urine 5 mg/dL (Negative); Leukocyte 500 (Negative); Nitrite Negative (Negative); Protein, Urine (Dipstick) 100 mg/dl (Neg-Trace)
[2021-10-24 01:23] LABS: Bacteria/HPF 2+ HPF (None Seen); WBC/HPF Greater than 50 HPF (0-3)
[2021-10-24 04:12] LABS: #Basophils 0.1 10x3/uL (0.0-0.2); #Monocytes 0.7 10x3/uL (0.0-1.1); #Neutrophils 5.8 10x3/uL (1.5-8.4); %Basophils 0.7 % (0.0-2.0); %Eosinophils 0.1 % (0.0-6.0); %Lymphocytes 9.5 % (18.0-47.0); %Monocytes 9.2 % (0.0-10.0); %Neutrophils 80.2 % (40.0-75.0); Hemoglobin 11.2 g/dL (12.0-15.5); Mean Corpuscular HGB CONC 30.8 g/dL (32.0-36.0); Mean Corpuscular Volume 87.7 fl (81.6-98.3); Platelet Count 143 10x3/uL (150-450); RBC Distribution Width 16.3 % (11.5-14.5); Red Blood Cell (RBC) Count 4.15 10x6/uL (3.90-5.03); White Blood Cell (WBC) Count 7.3 10x3/uL (3.5-10.5)
[2021-10-24 04:49] LABS: Anion Gap 17 mmol/L (10-20); BUN (Urea Nitrogen) 30 mg/dL (9.8-20.1); Calc. Creatinine Clearance 0 mL/min (70-130); Calcium 8.3 mg/dL (7.8-10.44); Carbon Dioxide 16 mmol/L (23-31); Chloride 112 mmol/L (98-107); Glucose 104 mg/dL (80-115); Magnesium 1.8 mg/dL (1.6-2.6); Potassium 4.5 mmol/L (3.5-5.1); Sodium 140 mmol/L (136-145)
[2021-10-24] MEDS: Levothyroxine Sodium 75 MCG TAB PO SCH (05:26)
[2021-10-24] MEDS: Sodium Chloride 0.9% 1,000 ML IV SCH ×2 (05:26→19:46)
[2021-10-24 05:45] LABS: SARS-CoV-2 NAA Rapid Test DETECTED (NotDetected)
[2021-10-24] MEDS ORDERED: FLU VACC QS2021-22(65YR UP)/PF 240 MCG/0.7 ML SYRINGE IM ONE (06:15)
[2021-10-24] MEDS: Thiamine HCl 200 MG/2 ML VIAL SLOW IVP SCH (06:24)
[2021-10-24 10:25] VITALS: BMI 21.7
[2021-10-24] MEDS: Rifaximin 550 MG TAB PO SCH ×2 (10:46→20:17)
[2021-10-24] MEDS: Metoprolol Tartrate 25 MG TAB PO SCH ×2 (10:46→20:05)
[2021-10-24] MEDS: Pantoprazole 40 MG VIAL IVP SCH ×2 (10:46→20:05)
[2021-10-24] MEDS: Multivitamin W/ Minerals 1 TAB PO SCH (10:46)
[2021-10-24] MEDS ORDERED: Acetaminophen 325 MG TAB PO SCH (11:15)
[2021-10-24] MEDS: Octreotide Acetate 1,250 MCG in Sodium Chloride 0.9% 250 ML 250 ML IVPB SCH (12:02)
[2021-10-24 12:06] LABS: Hemoglobin 9.7 g/dL (12.0-15.5); Platelet Count 146 10x3/uL (150-450)
[2021-10-24 19:14] LABS: Platelet Count 140 10x3/uL (150-450)
[2021-10-25] MEDS: Sodium Chloride 0.9% 1,000 ML IV SCH (04:11)
[2021-10-25] MEDS: Thiamine HCl 200 MG/2 ML VIAL SLOW IVP SCH (05:01)
[2021-10-25] MEDS: Levothyroxine Sodium 75 MCG TAB PO SCH (05:02)
[2021-10-25 08:00] LABS: #Monocytes 0.6 10x3/uL (0.0-1.1); #Neutrophils 5.6 10x3/uL (1.5-8.4); %Basophils 0.4 % (0.0-2.0); %Eosinophils 0.3 % (0.0-6.0); %Lymphocytes 8.5 % (18.0-47.0); %Monocytes 8.1 % (0.0-10.0); %Neutrophils 82.3 % (40.0-75.0); Hemoglobin 8.4 g/dL (12.0-15.5); Mean Corpuscular HGB CONC 29.6 g/dL (32.0-36.0); Mean Corpuscular Hemoglobin 26.4 pg (27.0-33.0); Mean Corpuscular Volume 89.3 fl (81.6-98.3); Mean Platelet Volume 12.1 fl (7.4-10.4); Platelet Count 131 10x3/uL (150-450); RBC Distribution Width 16.1 % (11.5-14.5); Red Blood Cell (RBC) Count 3.18 10x6/uL (3.90-5.03); White Blood Cell (WBC) Count 6.8 10x3/uL (3.5-10.5)
[2021-10-25] MEDS: Metoprolol Tartrate 25 MG TAB PO SCH ×2 (08:05→20:00)
[2021-10-25] MEDS: Pantoprazole 40 MG VIAL IVP SCH ×2 (08:05→20:00)
[2021-10-25] MEDS: Multivitamin W/ Minerals 1 TAB PO SCH (08:05)
[2021-10-25 08:11] LABS: ALT (SGPT) 10 U/L (8-55); AST (SGOT) 17 U/L (5-34); Albumin 2.5 g/dL (3.4-4.8); Alkaline Phosphatase 87 U/L (40-110); Anion Gap 12 mmol/L (10-20); BUN (Urea Nitrogen) 26 mg/dL (9.8-20.1); Bilirubin, Total 0.6 mg/dL (0.2-1.2); Calc. Creatinine Clearance 47 mL/min (70-130); Calcium 7.5 mg/dL (7.8-10.44); Carbon Dioxide 15 mmol/L (23-31); Chloride 121 mmol/L (98-107); Globulin 2.2 g/dL (2.4-3.5); Glucose 157 mg/dL (80-115); Potassium 3.8 mmol/L (3.5-5.1); Protein, Total 4.7 g/dL (5.8-8.1); Sodium 144 mmol/L (136-145)
[2021-10-25] MEDS: Rifaximin 550 MG TAB PO SCH ×2 (08:43→20:01)
[2021-10-25 09:24] LABS: Burr Cells SLIGHT = 2-5 cells (100X) (0-1/hpf); Hypochromia SLIGHT = 6-15 cells (100X) (0-5/hpf); Ovalocytes SLIGHT = 2-5 cells (100X) (0-1/hpf); Schistocytes SLIGHT = 2-5 cells (100X) (0-1/hpf)
[2021-10-25 09:25] LABS: Anisocytosis SLIGHT = 6-15 cells (100X) (0-5/hpf)
[2021-10-25] MEDS: Octreotide Acetate 1,250 MCG in Sodium Chloride 0.9% 250 ML 250 ML IVPB SCH (09:33)
[2021-10-25 09:51] LABS: Platelet Morphology Comment Appears Adequate
[2021-10-26] MEDS: Octreotide Acetate 1,250 MCG in Sodium Chloride 0.9% 250 ML 250 ML IVPB SCH (05:36)
[2021-10-26] MEDS: Levothyroxine Sodium 75 MCG TAB PO SCH (05:36)
[2021-10-26] MEDS: Thiamine HCl 200 MG/2 ML VIAL SLOW IVP SCH (06:21)
[2021-10-26 08:16] LABS: Hemoglobin 7.7 g/dL (12.0-15.5); Platelet Count 112 10x3/uL (150-450)
[2021-10-26] MEDS: Rifaximin 550 MG TAB PO SCH ×2 (08:37→22:35)
[2021-10-26] MEDS: Metoprolol Tartrate 25 MG TAB PO SCH ×2 (08:37→22:36)
[2021-10-26] MEDS: Multivitamin W/ Minerals 1 TAB PO SCH (08:37)
[2021-10-26] MEDS: Pantoprazole 40 MG VIAL IVP SCH ×2 (08:37→22:35)
[2021-10-26] MEDS: Vancomycin 25 MG/ML Oral SOLN PO SCH ×2 (15:33→22:35)
[2021-10-26 16:29] LABS: ALT (SGPT) 6 U/L (8-55); AST (SGOT) 20 U/L (5-34); Albumin 2.3 g/dL (3.4-4.8); Alkaline Phosphatase 69 U/L (40-110); Anion Gap 9 mmol/L (10-20); BUN (Urea Nitrogen) 20 mg/dL (9.8-20.1); Bilirubin, Total 0.4 mg/dL (0.2-1.2); Calc. Creatinine Clearance 58 mL/min (70-130); Calcium 7.3 mg/dL (7.8-10.44); Carbon Dioxide 17 mmol/L (23-31); Chloride 112 mmol/L (98-107); Globulin 2.1 g/dL (2.4-3.5); Glucose 154 mg/dL (80-115); Potassium 3.7 mmol/L (3.5-5.1); Protein, Total 4.4 g/dL (5.8-8.1); Sodium 134 mmol/L (136-145)
[2021-10-26 22:38] LABS: Platelet Count 93 10x3/uL (150-450)
[2021-10-26 22:39] LABS: Hemoglobin 8.8 g/dL (12.0-15.5)
[2021-10-27] MEDS ORDERED: Diltiazem 125 MG in Sodium Chloride 0.9% 100 ML IVPB SCH (01:30)
[2021-10-27] MEDS ORDERED: Digoxin 0.5 MG/2 ML AMP SLOW IVP SCH ×3 (03:15→18:00)
[2021-10-27] MEDS ORDERED: Sodium Chloride 0.9% 500 ML IV SCH (03:15)
[2021-10-27] MEDS: Vancomycin 25 MG/ML Oral SOLN PO SCH ×4 (04:53→21:56)
[2021-10-27] MEDS: Levothyroxine Sodium 75 MCG TAB PO SCH (06:05)
[2021-10-27] MEDS: Thiamine HCl 200 MG/2 ML VIAL SLOW IVP SCH (06:10)
[2021-10-27 06:43] LABS: #Eosinphils 0.3 10x3/uL (0.0-0.5); #Monocytes 0.5 10x3/uL (0.0-1.1); #Neutrophils 3.6 10x3/uL (1.5-8.4); %Basophils 0.6 % (0.0-2.0); %Lymphocytes 16.4 % (18.0-47.0); %Monocytes 9.5 % (0.0-10.0); %Neutrophils 67.9 % (40.0-75.0); Hemoglobin 7.7 g/dL (12.0-15.5); Mean Corpuscular HGB CONC 30.9 g/dL (32.0-36.0); Mean Corpuscular Volume 87.4 fl (81.6-98.3); Mean Platelet Volume 12.2 fl (7.4-10.4); Platelet Count 107 10x3/uL (150-450); RBC Distribution Width 15.4 % (11.5-14.5); Red Blood Cell (RBC) Count 2.85 10x6/uL (3.90-5.03); White Blood Cell (WBC) Count 5.4 10x3/uL (3.5-10.5)
[2021-10-27 06:46] LABS: Anion Gap 10 mmol/L (10-20); BUN (Urea Nitrogen) 18 mg/dL (9.8-20.1); Calc. Creatinine Clearance 53 mL/min (70-130); Carbon Dioxide 15 mmol/L (23-31); Chloride 117 mmol/L (98-107); Potassium 3.8 mmol/L (3.5-5.1); Sodium 138 mmol/L (136-145)
[2021-10-27 06:47] LABS: ALT (SGPT) 9 U/L (8-55); AST (SGOT) 21 U/L (5-34); Albumin 2.3 g/dL (3.4-4.8); Alkaline Phosphatase 77 U/L (40-110); Bilirubin, Total 0.4 mg/dL (0.2-1.2); Calcium 6.9 mg/dL (7.8-10.44); Globulin 2.4 g/dL (2.4-3.5); Glucose 113 mg/dL (80-115); Magnesium 1.5 mg/dL (1.6-2.6); Protein, Total 4.7 g/dL (5.8-8.1)
[2021-10-27] MEDS: Rifaximin 550 MG TAB PO SCH ×2 (09:58→21:58)
[2021-10-27] MEDS: Metoprolol Tartrate 25 MG TAB PO SCH (09:58)
[2021-10-27] MEDS: Multivitamin W/ Minerals 1 TAB PO SCH (09:58)
[2021-10-27] MEDS: Pantoprazole 40 MG VIAL IVP SCH ×2 (09:59→21:56)
[2021-10-27] MEDS ORDERED: Metoprolol Tartrate 25 MG TAB PO SCH (13:15)
[2021-10-27] MEDS ORDERED: Amiodarone 450 MG in Dextrose 5% in Water 250 ML IVPB SCH (16:30)
[2021-10-27] MEDS ORDERED: Amiodarone In Dextrose 200 ML IVPB SCH (16:45)
[2021-10-27] MEDS ORDERED: Amiodarone In Dextrose 150 MG in Premix Bag 1 BAG IVPB SCH (17:00)
[2021-10-27] MEDS ORDERED: Metoprolol Tartrate 50 MG TAB PO SCH (21:00)
[2021-10-27] MEDS: Metoprolol Tartrate 50 MG TAB PO SCH (21:55)
[2021-10-27 22:56] LABS: Hemoglobin 8.8 g/dL (12.0-15.5); Platelet Count 134 10x3/uL (150-450)
[2021-10-28] MEDS: Vancomycin 25 MG/ML Oral SOLN PO SCH ×4 (04:01→22:06)
[2021-10-28 05:55] LABS: Hemoglobin 7.3 g/dL (12.0-15.5); Mean Corpuscular HGB CONC 30.7 g/dL (32.0-36.0); Mean Corpuscular Hemoglobin 26.3 pg (27.0-33.0); Mean Corpuscular Volume 85.6 fl (81.6-98.3); Mean Platelet Volume 11.9 fl (7.4-10.4); Platelet Count 113 10x3/uL (150-450); RBC Distribution Width 15.4 % (11.5-14.5); Red Blood Cell (RBC) Count 2.78 10x6/uL (3.90-5.03); White Blood Cell (WBC) Count 6.9 10x3/uL (3.5-10.5)
[2021-10-28 06:22] LABS: ALT (SGPT) 8 U/L (8-55); AST (SGOT) 19 U/L (5-34); Albumin 2.2 g/dL (3.4-4.8); Alkaline Phosphatase 79 U/L (40-110); Anion Gap 12 mmol/L (10-20); BUN (Urea Nitrogen) 18 mg/dL (9.8-20.1); Bilirubin, Total 0.3 mg/dL (0.2-1.2); Calc. Creatinine Clearance 48 mL/min (70-130); Calcium 6.7 mg/dL (7.8-10.44); Carbon Dioxide 13 mmol/L (23-31); Chloride 119 mmol/L (98-107); Globulin 1.8 g/dL (2.4-3.5); Glucose 142 mg/dL (80-115); Potassium 3.9 mmol/L (3.5-5.1); Sodium 140 mmol/L (136-145)
[2021-10-28] MEDS: Thiamine HCl 200 MG/2 ML VIAL SLOW IVP SCH (06:29)
[2021-10-28] MEDS: Levothyroxine Sodium 75 MCG TAB PO SCH (06:29)
[2021-10-28 07:36] LABS: Band 6 % (5-11); Eosinophils 3 % (0-10); Lymphocytes 13 % (21-51); Monocytes 7 % (0-10); Neutrophil 66 % (42-75); Reactive Lymphocytes 4 % (0-10)
[2021-10-28 07:37] LABS: Poikilocytosis MODERATE=16-30 cells (100X) (0-5/hpf)
[2021-10-28 07:38] LABS: Anisocytosis SLIGHT = 6-15 cells (100X) (0-5/hpf); Burr Cells SLIGHT = 2-5 cells (100X) (0-1/hpf); Elliptocytes SLIGHT = 2-5 cells (100X) (0-1/hpf); Microcytosis SLIGHT = 6-15 cells (100X) (0-5/hpf); Ovalocytes MODERATE= 6-15 cells (100X) (0-1/hpf)
[2021-10-28 07:39] LABS: Hypochromia MODERATE=16-30 cells (100X) (0-5/hpf); Polychromasia SLIGHT = 2-3 cells (100X) (0-2/hpf)
[2021-10-28 07:41] LABS: Large Platelets MODERATE; Platelet Clumps SLIGHT; Platelet Morphology Comment Appears Decreased; Vacuoles MODERATE
[2021-10-28 07:42] LABS: Toxic Granulation SLIGHT
[2021-10-28 07:44] LABS: MDiff Complete? YES; Schistocytes SLIGHT = 2-5 cells (100X) (0-1/hpf)
[2021-10-28] MEDS: Metoprolol Tartrate 50 MG TAB PO SCH ×2 (07:59→12:37)
[2021-10-28] MEDS: Multivitamin W/ Minerals 1 TAB PO SCH (08:00)
[2021-10-28] MEDS: Pantoprazole 40 MG VIAL IVP SCH ×2 (08:00→22:07)
[2021-10-28] MEDS: Rifaximin 550 MG TAB PO SCH ×2 (08:00→22:06)
[2021-10-28 08:11] LABS: Hemoglobin 7.2 g/dL (12.0-15.5); Platelet Count 112 10x3/uL (150-450)
[2021-10-28] MEDS ORDERED: Digoxin 0.25 MG TAB PO SCH (09:00)
[2021-10-28] MEDS ORDERED: Digoxin 0.125 MG TAB PO SCH (09:00)
[2021-10-28] MEDS: Aztreonam 2 GM in Sodium Chloride 0.9% 100 ML IVPB SCH ×2 (13:52→22:06)
[2021-10-28] MEDS: Amiodarone 200 MG TAB PO SCH (22:06)
[2021-10-28] MEDS: Metoprolol Tartrate 25 MG TAB PO SCH (22:08)
[2021-10-29] MEDS: Vancomycin 25 MG/ML Oral SOLN PO SCH ×4 (03:39→20:06)
[2021-10-29 04:51] LABS: ALT (SGPT) 9 U/L (8-55); AST (SGOT) 24 U/L (5-34); Albumin 2.1 g/dL (3.4-4.8); Alkaline Phosphatase 86 U/L (40-110); Anion Gap 13 mmol/L (10-20); BUN (Urea Nitrogen) 17 mg/dL (9.8-20.1); Bilirubin, Total 0.4 mg/dL (0.2-1.2); Calc. Creatinine Clearance 58 mL/min (70-130); Calcium 6.8 mg/dL (7.8-10.44); Carbon Dioxide 13 mmol/L (23-31); Chloride 119 mmol/L (98-107); Globulin 2.1 g/dL (2.4-3.5); Glucose 97 mg/dL (80-115); Protein, Total 4.2 g/dL (5.8-8.1); Sodium 141 mmol/L (136-145)
[2021-10-29 06:09] LABS: Hemoglobin 7.1 g/dL (12.0-15.5); Mean Corpuscular HGB CONC 31.4 g/dL (32.0-36.0); Mean Corpuscular Hemoglobin 26.4 pg (27.0-33.0); Mean Platelet Volume 12.3 fl (7.4-10.4); Platelet Count 117 10x3/uL (150-450); RBC Distribution Width 15.6 % (11.5-14.5); Red Blood Cell (RBC) Count 2.69 10x6/uL (3.90-5.03); White Blood Cell (WBC) Count 6.9 10x3/uL (3.5-10.5)
[2021-10-29] MEDS: Aztreonam 2 GM in Sodium Chloride 0.9% 100 ML IVPB SCH ×3 (06:21→21:53)
[2021-10-29] MEDS: Levothyroxine Sodium 75 MCG TAB PO SCH (06:21)
[2021-10-29] MEDS: Thiamine HCl 200 MG/2 ML VIAL SLOW IVP SCH (06:43)
[2021-10-29] MEDS: Octreotide Acetate 1,250 MCG in Sodium Chloride 0.9% 250 ML 250 ML IVPB SCH (07:32)
[2021-10-29 08:01] LABS: Band 4 % (5-11); Eosinophils 7 % (0-10); Lymphocytes 9 % (21-51); Monocytes 6 % (0-10); Neutrophil 71 % (42-75); Reactive Lymphocytes 3 % (0-10)
[2021-10-29 08:02] LABS: Anisocytosis SLIGHT = 6-15 cells (100X) (0-5/hpf); Burr Cells SLIGHT = 2-5 cells (100X) (0-1/hpf); Crenated RBC SLIGHT = 1-5 cells (100X) (None Seen); Microcytosis SLIGHT = 6-15 cells (100X) (0-5/hpf); Ovalocytes MODERATE= 6-15 cells (100X) (0-1/hpf); Poikilocytosis MODERATE=16-30 cells (100X) (0-5/hpf)
[2021-10-29 08:03] LABS: Elliptocytes SLIGHT = 2-5 cells (100X) (0-1/hpf)
[2021-10-29 08:04] LABS: Hypochromia MODERATE=16-30 cells (100X) (0-5/hpf)
[2021-10-29 08:05] LABS: Large Platelets SLIGHT; Platelet Clumps SLIGHT; Toxic Granulation SLIGHT; Vacuoles MODERATE
[2021-10-29 08:06] LABS: Platelet Morphology Comment Appears Decreased
[2021-10-29 08:07] LABS: MDiff Complete? YES
[2021-10-29] MEDS: Pantoprazole 40 MG VIAL IVP SCH ×2 (10:19→20:06)
[2021-10-29] MEDS: Sodium Bicarbonate Tab 325 MG TAB PO SCH ×2 (10:19→20:06)
[2021-10-29] MEDS: Multivitamin W/ Minerals 1 TAB PO SCH (10:19)
[2021-10-29] MEDS: Amiodarone 200 MG TAB PO SCH ×2 (10:19→20:06)
[2021-10-29] MEDS: Metoprolol Tartrate 25 MG TAB PO SCH ×2 (10:19→20:06)
[2021-10-29] MEDS: Rifaximin 550 MG TAB PO SCH ×2 (10:25→20:06)
[2021-10-29] MEDS ORDERED: Sodium Chloride 0.9% 100 ML ONE (15:45)
[2021-10-30] MEDS: Thiamine HCl 200 MG/2 ML VIAL SLOW IVP SCH (04:26)
[2021-10-30] MEDS: Vancomycin 25 MG/ML Oral SOLN PO SCH ×2 (04:26→08:22)
[2021-10-30] MEDS: Levothyroxine Sodium 75 MCG TAB PO SCH (04:29)
[2021-10-30] MEDS: Aztreonam 2 GM in Sodium Chloride 0.9% 100 ML IVPB SCH ×2 (06:15→14:30)
[2021-10-30] MEDS ORDERED: diphenhydrAMINE 50 MG/ML VIAL IVP SCH (06:30)
[2021-10-30] MEDS: Rifaximin 550 MG TAB PO SCH (08:21)
[2021-10-30] MEDS: Sodium Bicarbonate Tab 325 MG TAB PO SCH (08:21)
[2021-10-30] MEDS: Amiodarone 200 MG TAB PO SCH (08:21)
[2021-10-30] MEDS: Multivitamin W/ Minerals 1 TAB PO SCH (08:21)
[2021-10-30] MEDS: Metoprolol Tartrate 25 MG TAB PO SCH (08:21)
[2021-10-30] MEDS: Pantoprazole 40 MG VIAL IVP SCH (08:22)
[2021-10-30 09:24] LABS: #Basophils 0.1 10x3/uL (0.0-0.2); #Eosinphils 0.5 10x3/uL (0.0-0.5); #Monocytes 0.6 10x3/uL (0.0-1.1); #Neutrophils 5.8 10x3/uL (1.5-8.4); %Basophils 0.7 % (0.0-2.0); %Eosinophils 5.8 % (0.0-6.0); %Lymphocytes 13.8 % (18.0-47.0); %Monocytes 6.8 % (0.0-10.0); Mean Corpuscular HGB CONC 29.5 g/dL (32.0-36.0); Mean Corpuscular Hemoglobin 26.2 pg (27.0-33.0); Mean Corpuscular Volume 88.8 fl (81.6-98.3); Mean Platelet Volume 12.2 fl (7.4-10.4); Platelet Count 186 10x3/uL (150-450); RBC Distribution Width 15.9 % (11.5-14.5); Red Blood Cell (RBC) Count 2.67 10x6/uL (3.90-5.03); White Blood Cell (WBC) Count 8.1 10x3/uL (3.5-10.5)
[2021-10-30 09:29] LABS: Anion Gap 11 mmol/L (10-20); BUN (Urea Nitrogen) 20 mg/dL (9.8-20.1); Calc. Creatinine Clearance 48 mL/min (70-130); Calcium 6.8 mg/dL (7.8-10.44); Carbon Dioxide 16 mmol/L (23-31); Chloride 116 mmol/L (98-107); Glucose 102 mg/dL (80-115); Sodium 139 mmol/L (136-145)
[2021-10-30 09:47] VITALS: TEMP 96.8
[2021-10-30] MEDS ORDERED: Lidocaine 1% PF 5 ML VIAL ONE (10:32)
[2021-10-30] MEDS ORDERED: Sodium Bicarbonate 2.5 MEQ/5 ML VIAL ONE (10:32)
[2021-10-30 12:19] VITALS: BP 94/37
== END 2021-10-30 15:30 | disposition home or self-care (01) | DRG 432 ==
LOC: CSHERS 22:40 → CSHTELE 10-24 03:41 → CSHIMCU 10-24 14:07 → CSHTELE 10-26 15:17
PROVIDERS: ADMIT Family Medicine; ATTEND Family Medicine
PROC: 8E0ZXY6 Isolation (ICD-10-PCS; principal; 2021-10-24)
PROC: 02HV33Z Insertion of Infusion Device into Superior Vena Cava, Percutaneous Approach (ICD-10-PCS; 2021-10-24)
PROC: B548ZZA Ultrasonography of Superior Vena Cava, Guidance (ICD-10-PCS; 2021-10-24)
PROC: 02HV33Z Insertion of Infusion Device into Superior Vena Cava, Percutaneous Approach (ICD-10-PCS; 2021-10-30)
PROC: B5181ZA Fluoroscopy of Superior Vena Cava using Low Osmolar Contrast, Guidance (ICD-10-PCS; 2021-10-30)
PROC: B548ZZA Ultrasonography of Superior Vena Cava, Guidance (ICD-10-PCS; 2021-10-30)
DX: K70.40 Alcoholic hepatic failure without coma (principal); G93.41 Metabolic encephalopathy; U07.1 COVID-19; A41.9 Sepsis, unspecified organism; K76.6 Portal hypertension; Z16.24 Resistance to multiple antibiotics; D62 Acute posthemorrhagic anemia; K92.2 Gastrointestinal hemorrhage, unspecified; I85.10 Secondary esophageal varices without bleeding; N39.0 Urinary tract infection, site not specified; A04.72 Enterocolitis due to Clostridium difficile, not specified as recurrent; I50.32 Chronic diastolic (congestive) heart failure; K70.30 Alcoholic cirrhosis of liver without ascites; J44.9 Chronic obstructive pulmonary disease, unspecified; E03.9 Hypothyroidism, unspecified; Z96.649 Presence of unspecified artificial hip joint; I11.0 Hypertensive heart disease with heart failure; Z96.612 Presence of left artificial shoulder joint; D63.8 Anemia in other chronic diseases classified elsewhere; R82.71 Bacteriuria; I48.91 Unspecified atrial fibrillation; Z88.0 Allergy status to penicillin; Z88.8 Allergy status to other drugs, medicaments and biological substances; Z88.1 Allergy status to other antibiotic agents; Z90.89 Acquired absence of other organs; Z89.612 Acquired absence of left leg above knee; Z87.891 Personal history of nicotine dependence; Z86.711 Personal history of pulmonary embolism
CPT/HCPCS: 36415; 36569; 51701; 70450; 71045; 74018; 80048; 80053; 81003; 81015; 82140; 83735; 85014; 85018; 85025; 85049; 86850; 86900; 86901; 87040; 87045; 87046; 87077; 87081; 87149; 87186; 87324; 87427; 87449; 93005; 93010; C1751; C9113; J0282; J0744; J1160; J1200; J2354; J3411; J3490; J7030; J7050; U0002

== ENCOUNTER 2021-11-02 13:08 | Emergency (ER) | payer MEDICARE, OTHER ==
[2021-11-02 14:43] LABS: #Monocytes 0.6 10x3/uL (0.0-1.1); #Neutrophils 8.6 10x3/uL (1.5-8.4); %Basophils 0.1 % (0.0-2.0); %Lymphocytes 8.7 % (18.0-47.0); %Monocytes 6.3 % (0.0-10.0); %Neutrophils 84.3 % (40.0-75.0); Hemoglobin 7.6 g/dL (12.0-15.5); Mean Corpuscular HGB CONC 30.5 g/dL (32.0-36.0); Mean Corpuscular Hemoglobin 25.9 pg (27.0-33.0); Mean Platelet Volume 11.2 fl (7.4-10.4); Platelet Count 306 10x3/uL (150-450); RBC Distribution Width 15.8 % (11.5-14.5); Red Blood Cell (RBC) Count 2.93 10x6/uL (3.90-5.03); White Blood Cell (WBC) Count 10.2 10x3/uL (3.5-10.5)
[2021-11-02 14:55] LABS: INR-International Normal Ratio 1.1; PTT 24.5 sec (22.0-33.0); Prothrombin Time 12.4 sec (9.5-12.1)
[2021-11-02 14:58] LABS: ALT (SGPT) 10 U/L (8-55); AST (SGOT) 14 U/L (5-34); Albumin 2.3 g/dL (3.4-4.8); Alkaline Phosphatase 97 U/L (40-110); Anion Gap 12 mmol/L (10-20); BUN (Urea Nitrogen) 39 mg/dL (9.8-20.1); Bilirubin, Total 0.3 mg/dL (0.2-1.2); Calc. Creatinine Clearance 0 mL/min (70-130); Calcium 7.8 mg/dL (7.8-10.44); Carbon Dioxide 15 mmol/L (23-31); Chloride 115 mmol/L (98-107); Globulin 2.7 g/dL (2.4-3.5); Glucose 140 mg/dL (80-115); Sodium 138 mmol/L (136-145)
== END 2021-11-02 17:25 | disposition home or self-care (01) ==
LOC: CSHERS 13:08
DX: Z45.2 Encounter for adjustment and management of vascular access device (principal); I10 Essential (primary) hypertension; E03.9 Hypothyroidism, unspecified; E78.5 Hyperlipidemia, unspecified
CPT/HCPCS: 36415; 80053; 85025; 85610; 85730; 94760

== ENCOUNTER 2021-11-15 12:28 | Emergency (ER) | payer MEDICARE, MEDICAID ==
[2021-11-15] MEDS ORDERED: HYDROcodone/Acetaminophen 10/325 mg Tablet ONE (14:03)
[2021-11-15 14:25] LABS: #Basophils 0.1 10x3/uL (0.0-0.2); #Eosinphils 0.3 10x3/uL (0.0-0.5); #Monocytes 0.5 10x3/uL (0.0-1.1); %Basophils 1.5 % (0.0-2.0); %Lymphocytes 20.4 % (18.0-47.0); %Monocytes 7.6 % (0.0-10.0); %Neutrophils 65.2 % (40.0-75.0); Hemoglobin 8.9 g/dL (12.0-15.5); Mean Corpuscular HGB CONC 28.8 g/dL (32.0-36.0); Mean Corpuscular Hemoglobin 24.1 pg (27.0-33.0); Mean Corpuscular Volume 83.7 fl (81.6-98.3); Mean Platelet Volume 11.1 fl (7.4-10.4); Platelet Count 247 10x3/uL (150-450); RBC Distribution Width 16.4 % (11.5-14.5); Red Blood Cell (RBC) Count 3.69 10x6/uL (3.90-5.03); White Blood Cell (WBC) Count 6.2 10x3/uL (3.5-10.5)
[2021-11-15 14:55] LABS: Anisocytosis SLIGHT = 6-15 cells (100X) (0-5/hpf); Hypochromia SLIGHT = 6-15 cells (100X) (0-5/hpf); Platelet Morphology Comment Appears Adequate
[2021-11-15 14:59] LABS: ALT (SGPT) 9 U/L (8-55); AST (SGOT) 21 U/L (5-34); Albumin 2.9 g/dL (3.4-4.8); Alkaline Phosphatase 113 U/L (40-110); Anion Gap 15 mmol/L (10-20); BUN (Urea Nitrogen) 21 mg/dL (9.8-20.1); Bilirubin, Total 0.5 mg/dL (0.2-1.2); Calc. Creatinine Clearance 0 mL/min (70-130); Calcium 8.4 mg/dL (7.8-10.44); Carbon Dioxide 20 mmol/L (23-31); Chloride 107 mmol/L (98-107); Globulin 3.2 g/dL (2.4-3.5); Glucose 107 mg/dL (80-115); Potassium 4.6 mmol/L (3.5-5.1); Protein, Total 6.1 g/dL (5.8-8.1); Sodium 137 mmol/L (136-145)
== END 2021-11-15 17:15 | disposition home or self-care (01) ==
LOC: CSHERS 12:28
DX: L03.311 Cellulitis of abdominal wall (principal); R19.00 Intra-abdominal and pelvic swelling, mass and lump, unspecified site; I10 Essential (primary) hypertension; Z86.16 Personal history of COVID-19; D64.9 Anemia, unspecified; K21.9 Gastro-esophageal reflux disease without esophagitis; R53.1 Weakness; E03.9 Hypothyroidism, unspecified
CPT/HCPCS: 36415; 71045; 80053; 82140; 83605; 83880; 84484; 85025; 86140; 93005; 93010; 94760

== ENCOUNTER 2021-11-20 13:31 | Emergency (ER) | payer MEDICARE, MEDICAID ==
[2021-11-20] MEDS ORDERED: traMADol HCl 50 MG TAB ONE (16:31)
== END 2021-11-20 17:46 | DRG 300 ==
LOC: CSHERS 13:31 → UNDOADMIN 17:24 → CSHERHOLD 17:24 → UNDODISIN 17:46 → CSHERS 17:46
DX: I82.621 Acute embolism and thrombosis of deep veins of right upper extremity (principal); L03.113 Cellulitis of right upper limb; I10 Essential (primary) hypertension; E03.9 Hypothyroidism, unspecified; F41.9 Anxiety disorder, unspecified; F32.A Depression, unspecified; J44.9 Chronic obstructive pulmonary disease, unspecified; E78.5 Hyperlipidemia, unspecified; K21.9 Gastro-esophageal reflux disease without esophagitis; D64.9 Anemia, unspecified; Z86.711 Personal history of pulmonary embolism; Z88.1 Allergy status to other antibiotic agents; Z88.0 Allergy status to penicillin; Z88.8 Allergy status to other drugs, medicaments and biological substances; Z89.612 Acquired absence of left leg above knee; Z97.10 Presence of artificial limb (complete) (partial), unspecified; Z87.891 Personal history of nicotine dependence
CPT/HCPCS: 36415; 36416; 82140

== ENCOUNTER 2021-11-22 15:45 | Inpatient (IN) | payer MEDICARE, MEDICAID ==
[2021-11-22 16:24] LABS: #Neutrophils 9.3 10x3/uL (1.5-8.4); %Basophils 0.4 % (0.0-2.0); %Eosinophils 0.2 % (0.0-6.0); %Lymphocytes 8.6 % (18.0-47.0); %Monocytes 8.5 % (0.0-10.0); %Neutrophils 81.9 % (40.0-75.0); Hemoglobin 7.4 g/dL (12.0-15.5); Mean Corpuscular HGB CONC 29.4 g/dL (32.0-36.0); Mean Corpuscular Hemoglobin 23.3 pg (27.0-33.0); Mean Corpuscular Volume 79.5 fl (81.6-98.3); Mean Platelet Volume 10.8 fl (7.4-10.4); Platelet Count 236 10x3/uL (150-450); RBC Distribution Width 16.8 % (11.5-14.5); Red Blood Cell (RBC) Count 3.17 10x6/uL (3.90-5.03); White Blood Cell (WBC) Count 11.4 10x3/uL (3.5-10.5)
[2021-11-22 16:37] LABS: ALT (SGPT) 21 U/L (8-55); AST (SGOT) 50 U/L (5-34); Albumin 2.9 g/dL (3.4-4.8); Alkaline Phosphatase 103 U/L (40-110); Anion Gap 19 mmol/L (10-20); BUN (Urea Nitrogen) 32 mg/dL (9.8-20.1); Bilirubin, Total 0.7 mg/dL (0.2-1.2); Calc. Creatinine Clearance 0 mL/min (70-130); Calcium 8.6 mg/dL (7.8-10.44); Carbon Dioxide 20 mmol/L (23-31); Chloride 108 mmol/L (98-107); Globulin 2.6 g/dL (2.4-3.5); Glucose 67 mg/dL (80-115); Potassium 5.4 mmol/L (3.5-5.1); Protein, Total 5.5 g/dL (5.8-8.1); Sodium 142 mmol/L (136-145)
[2021-11-22 16:54] LABS: Anisocytosis SLIGHT = 6-15 cells (100X) (0-5/hpf); Hypochromia MODERATE=16-30 cells (100X) (0-5/hpf); Ovalocytes SLIGHT = 2-5 cells (100X) (0-1/hpf); Polychromasia SLIGHT = 2-3 cells (100X) (0-2/hpf); Target Cells SLIGHT = 2-5 cells (100X) (0-1/hpf)
[2021-11-22 16:56] LABS: Large Platelets SLIGHT; Platelet Morphology Comment Appears Adequate
[2021-11-22 17:25] LABS: Bilirubin Neg (Negative); Blood, Urine Negative (Negative); Clarity Clear (Clear); Glucose, Urine (Dipstick) Normal (Negative); Ketone, Urine Negative (Negative); Leukocyte Negative (Negative); Nitrite Negative (Negative); Protein, Urine (Dipstick) Negative (Neg-Trace); Specific Gravity, Urine 1.015 (1.002-1.036); Urobilinogen Normal mg/dL (Less than 2)
[2021-11-22] MEDS ORDERED: hydrALAZINE 20 MG/ML VIAL SLOW IVP PRN (18:34)
[2021-11-22] MEDS ORDERED: Ondansetron PF 4 MG/2 ML Vial IVP PRN (18:34)
[2021-11-22 19:05] LABS: SARS-CoV-2 NAA Rapid Test DETECTED (NotDetected)
[2021-11-22 19:36] LABS: Lactic Acid 2.7 mmol/L (0.5-2.2)
[2021-11-23] MEDS: Sodium Chloride 0.9% 1,000 ML IV SCH ×3 (00:47→21:10)
[2021-11-23] MEDS ORDERED: FLU VACC QS2021-22(65YR UP)/PF 240 MCG/0.7 ML SYRINGE IM ONE (01:00)
[2021-11-23 06:28] LABS: #Monocytes 0.7 10x3/uL (0.0-1.1); #Neutrophils 11.1 10x3/uL (1.5-8.4); %Basophils 0.2 % (0.0-2.0); %Lymphocytes 6.4 % (18.0-47.0); %Monocytes 5.6 % (0.0-10.0); %Neutrophils 87.4 % (40.0-75.0); Hemoglobin 8.5 g/dL (12.0-15.5); Mean Corpuscular HGB CONC 29.7 g/dL (32.0-36.0); Mean Corpuscular Volume 77.3 fl (81.6-98.3); Mean Platelet Volume 11.2 fl (7.4-10.4); Platelet Count 197 10x3/uL (150-450); RBC Distribution Width 17.2 % (11.5-14.5); White Blood Cell (WBC) Count 12.7 10x3/uL (3.5-10.5)
[2021-11-23 06:33] LABS: ALT (SGPT) 28 U/L (8-55); AST (SGOT) 73 U/L (5-34); Albumin 2.7 g/dL (3.4-4.8); Alkaline Phosphatase 103 U/L (40-110); Anion Gap 19 mmol/L (10-20); BUN (Urea Nitrogen) 35 mg/dL (9.8-20.1); Bilirubin, Total 0.9 mg/dL (0.2-1.2); Calc. Creatinine Clearance 22 mL/min (70-130); Calcium 7.8 mg/dL (7.8-10.44); Carbon Dioxide 17 mmol/L (23-31); Chloride 108 mmol/L (98-107); Globulin 2.3 g/dL (2.4-3.5); Potassium 5.5 mmol/L (3.5-5.1); Sodium 138 mmol/L (136-145)
[2021-11-23 06:43] LABS: Glucose 58 mg/dL (80-115)
[2021-11-23 06:49] LABS: Elliptocytes SLIGHT = 2-5 cells (100X) (0-1/hpf); Platelet Morphology Comment Appears Adequate; Tear Drops SLIGHT = 2-5 cells (100X) (0-1/hpf)
[2021-11-23 06:50] LABS: Hypochromia SLIGHT = 6-15 cells (100X) (0-5/hpf); Macrocytosis SLIGHT = 6-15 cells (100X) (0-5/hpf); Microcytosis SLIGHT = 6-15 cells (100X) (0-5/hpf); Polychromasia SLIGHT = 2-3 cells (100X) (0-2/hpf); Target Cells SLIGHT = 2-5 cells (100X) (0-1/hpf)
[2021-11-23] MEDS ORDERED: Dextrose 50% Abboject 50 ML SYRINGE SLOW IVP SCH ×2 (06:56→08:45)
[2021-11-23] MEDS ORDERED: Dextrose 50% Abboject 50 ML SYRINGE ONE (06:58)
[2021-11-23 10:32] VITALS: BMI 24.5
[2021-11-23] MEDS: Albumin 25% 25 GM/100 ML BOT IVPB SCH ×3 (12:58→18:23)
[2021-11-23] MEDS: HYDROcodone/Acetaminophen 5/325 mg Tablet PO PRN ×2 (18:24→21:23)
[2021-11-23] MEDS: Lidocaine 5% Patch TD SCH (18:24)
[2021-11-23] MEDS ORDERED: Apixaban 5 MG TAB PO SCH (21:00)
[2021-11-23] MEDS: Metoprolol Tartrate 25 MG TAB PO SCH (21:08)
[2021-11-23] MEDS: Atorvastatin Calcium 10 MG TAB PO SCH (21:08)
[2021-11-23] MEDS: Pregabalin 75 MG CAP PO SCH (21:09)
[2021-11-23] MEDS: Amiodarone 200 MG TAB PO SCH (21:09)
[2021-11-23] MEDS: Ferrous Sulfate 325 MG TAB PO SCH (21:09)
[2021-11-23] MEDS: Sodium Bicarbonate Tab 325 MG TAB PO SCH (21:09)
[2021-11-23] MEDS: Cholecalciferol 1,000 UNITS (25 MCG) TAB PO SCH (21:09)
[2021-11-23] MEDS: Calcium Carbonate 500 MG TAB PO SCH (23:29)
[2021-11-24] MEDS: Albumin 25% 25 GM/100 ML BOT IVPB SCH ×3 (01:39→23:55)
[2021-11-24 05:03] LABS: Hemoglobin 7.5 g/dL (12.0-15.5); Mean Corpuscular Hemoglobin 23.3 pg (27.0-33.0); Mean Corpuscular Volume 83.2 fl (81.6-98.3); Mean Platelet Volume 11.3 fl (7.4-10.4); Platelet Count 179 10x3/uL (150-450); RBC Distribution Width 17.5 % (11.5-14.5); Red Blood Cell (RBC) Count 3.22 10x6/uL (3.90-5.03); White Blood Cell (WBC) Count 14.5 10x3/uL (3.5-10.5)
[2021-11-24] MEDS: Levothyroxine Sodium 75 MCG TAB PO SCH (05:32)
[2021-11-24] MEDS: LIDOCAINE Patch Removal TOP SCH (05:43)
[2021-11-24 06:41] LABS: #Neutrophils 12.4 10x3/uL (1.5-8.4); %Basophils 0.1 % (0.0-2.0); %Eosinophils 0.2 % (0.0-6.0); %Lymphocytes 8.1 % (18.0-47.0); %Neutrophils 85.2 % (40.0-75.0)
[2021-11-24 06:42] LABS: #Monocytes 0.9 10x3/uL (0.0-1.1)
[2021-11-24 06:43] LABS: Platelet Morphology Comment Appears Adequate
[2021-11-24 06:45] LABS: Anisocytosis SLIGHT = 6-15 cells (100X) (0-5/hpf); Elliptocytes SLIGHT = 2-5 cells (100X) (0-1/hpf); Hypochromia MODERATE=16-30 cells (100X) (0-5/hpf); Macrocytosis SLIGHT = 6-15 cells (100X) (0-5/hpf); Microcytosis SLIGHT = 6-15 cells (100X) (0-5/hpf); Schistocytes SLIGHT = 2-5 cells (100X) (0-1/hpf); Target Cells SLIGHT = 2-5 cells (100X) (0-1/hpf)
[2021-11-24 06:48] LABS: Anion Gap 19 mmol/L (10-20); BUN (Urea Nitrogen) 36 mg/dL (9.8-20.1); Calc. Creatinine Clearance 19 mL/min (70-130); Carbon Dioxide 15 mmol/L (23-31); Chloride 108 mmol/L (98-107); Potassium 4.6 mmol/L (3.5-5.1); Sodium 137 mmol/L (136-145)
[2021-11-24 06:49] LABS: ALT (SGPT) 38 U/L (8-55); AST (SGOT) 72 U/L (5-34); Albumin 2.8 g/dL (3.4-4.8); Alkaline Phosphatase 105 U/L (40-110); Bilirubin, Total 0.7 mg/dL (0.2-1.2); Calcium 7.6 mg/dL (7.8-10.44); Globulin 2.3 g/dL (2.4-3.5); Glucose 92 mg/dL (80-115); Protein, Total 5.1 g/dL (5.8-8.1)
[2021-11-24] MEDS: HYDROcodone/Acetaminophen 5/325 mg Tablet PO PRN ×3 (07:30→17:54)
[2021-11-24] MEDS ORDERED: DULoxetine 60 MG CAP PO SCH (09:00)
[2021-11-24] MEDS: Sodium Bicarbonate Tab 325 MG TAB PO SCH ×2 (09:00→20:31)
[2021-11-24] MEDS: Pregabalin 75 MG CAP PO SCH ×2 (10:57→20:28)
[2021-11-24] MEDS: Zinc Gluconate 50 MG TAB PO SCH (10:57)
[2021-11-24] MEDS: Amiodarone 200 MG TAB PO SCH ×2 (10:58→22:51)
[2021-11-24] MEDS: Ascorbic Acid 500 mg Chewable Tablet PO SCH (10:58)
[2021-11-24] MEDS: Multivit, Therapeutic 1 TAB PO SCH (10:58)
[2021-11-24] MEDS: Folic Acid 1 MG TAB PO SCH (10:58)
[2021-11-24] MEDS: Ferrous Sulfate 325 MG TAB PO SCH ×2 (10:59→22:28)
[2021-11-24] MEDS: Metoprolol Tartrate 25 MG TAB PO SCH ×2 (10:59→22:51)
[2021-11-24] MEDS: Thiamine 100 MG TAB PO SCH (10:59)
[2021-11-24] MEDS: Apixaban 5 MG TAB PO SCH ×2 (10:59→22:52)
[2021-11-24] MEDS: Fluticasone Propionate Nasal Spray 16 gm Bottle NASAL SCH (11:00)
[2021-11-24] MEDS ORDERED: DULoxetine 30 MG CAP PO SCH (11:00)
[2021-11-24] MEDS: Nystatin Powder 15 GM BOT TOP SCH (11:01)
[2021-11-24] MEDS: SODIUM BICARBONATE IV SCH (11:03)
[2021-11-24] MEDS: NACL IV SCH (11:03)
[2021-11-24] MEDS: DEXTROSE IV SCH (11:03)
[2021-11-24] MEDS: ADMIXTURE FEE IV SCH (11:03)
[2021-11-24] MEDS: Rifaximin 550 MG TAB PO SCH (11:08)
[2021-11-24] MEDS ORDERED: Ferrous Sulfate 325 MG TAB ONE (20:30)
[2021-11-24] MEDS: Lidocaine 5% Patch TD SCH (20:31)
[2021-11-24] MEDS: Calcium Carbonate 500 MG TAB PO SCH (22:51)
[2021-11-24] MEDS: Atorvastatin Calcium 10 MG TAB PO SCH (22:51)
[2021-11-24] MEDS: Cholecalciferol 1,000 UNITS (25 MCG) TAB PO SCH (22:51)
[2021-11-25] MEDS: HYDROcodone/Acetaminophen 5/325 mg Tablet PO PRN ×3 (00:20→13:57)
[2021-11-25] MEDS: Sodium Bicarbonate Tab 325 MG TAB PO SCH ×4 (01:31→21:03)
[2021-11-25] MEDS: NACL IV SCH ×2 (01:32→17:03)
[2021-11-25] MEDS: ADMIXTURE FEE IV SCH ×2 (01:32→17:03)
[2021-11-25] MEDS: DEXTROSE IV SCH ×2 (01:32→17:03)
[2021-11-25] MEDS: SODIUM BICARBONATE IV SCH ×2 (01:32→17:03)
[2021-11-25] MEDS: Octreotide Acetate 1,250 MCG, Admixture Fee 1 EACH in Sodium Chloride 0.9% 250 ML 250 ML IVPB SCH (02:45)
[2021-11-25 03:55] LABS: #Eosinphils 0.1 10x3/uL (0.0-0.5); #Monocytes 0.7 10x3/uL (0.0-1.1); %Basophils 0.3 % (0.0-2.0); %Eosinophils 1.2 % (0.0-6.0); %Neutrophils 80.3 % (40.0-75.0); Hemoglobin 6.8 g/dL (12.0-15.5); Mean Corpuscular HGB CONC 27.2 g/dL (32.0-36.0); Mean Corpuscular Hemoglobin 22.7 pg (27.0-33.0); Mean Corpuscular Volume 83.3 fl (81.6-98.3); Mean Platelet Volume 11.2 fl (7.4-10.4); Platelet Count 168 10x3/uL (150-450); RBC Distribution Width 17.4 % (11.5-14.5); White Blood Cell (WBC) Count 9.9 10x3/uL (3.5-10.5)
[2021-11-25 04:18] LABS: ALT (SGPT) 33 U/L (8-55); AST (SGOT) 55 U/L (5-34); Albumin 3.4 g/dL (3.4-4.8); Alkaline Phosphatase 103 U/L (40-110); Anion Gap 17 mmol/L (10-20); BUN (Urea Nitrogen) 38 mg/dL (9.8-20.1); Bilirubin, Total 0.6 mg/dL (0.2-1.2); Calc. Creatinine Clearance 17 mL/min (70-130); Calcium 7.6 mg/dL (7.8-10.44); Carbon Dioxide 17 mmol/L (23-31); Chloride 107 mmol/L (98-107); Globulin 2.4 g/dL (2.4-3.5); Glucose 101 mg/dL (80-115); Potassium 4.2 mmol/L (3.5-5.1); Protein, Total 5.8 g/dL (5.8-8.1); Sodium 137 mmol/L (136-145)
[2021-11-25] MEDS: Levothyroxine Sodium 75 MCG TAB PO SCH (05:13)
[2021-11-25] MEDS: Albumin 25% 25 GM/100 ML BOT IVPB SCH ×4 (05:13→21:00)
[2021-11-25] MEDS: LIDOCAINE Patch Removal TOP SCH (05:14)
[2021-11-25 06:24] LABS: Crenated RBC SLIGHT = 1-5 cells (100X) (None Seen); Elliptocytes SLIGHT = 2-5 cells (100X) (0-1/hpf); Helmet Cells SLIGHT = 2-5 cells (100X) (0-1/hpf)
[2021-11-25 06:25] LABS: Hypochromia MODERATE=16-30 cells (100X) (0-5/hpf); Target Cells SLIGHT = 2-5 cells (100X) (0-1/hpf)
[2021-11-25 06:26] LABS: Anisocytosis SLIGHT = 6-15 cells (100X) (0-5/hpf); Platelet Morphology Comment Appears Adequate; Schistocytes SLIGHT = 2-5 cells (100X) (0-1/hpf)
[2021-11-25 06:27] LABS: Blister Cells SLIGHT = 2-5 cells (100X) (0-1/hpf)
[2021-11-25 08:04] LABS: INR-International Normal Ratio 1.6; Prothrombin Time 17.1 sec (9.5-12.1)
[2021-11-25] MEDS ORDERED: Chloraseptic Spray 180 ml Bottle PO PRN (08:50)
[2021-11-25] MEDS: DULoxetine 30 MG CAP PO SCH (09:20)
[2021-11-25] MEDS: Metoprolol Tartrate 25 MG TAB PO SCH ×2 (09:21→21:02)
[2021-11-25] MEDS: Ascorbic Acid 500 mg Chewable Tablet PO SCH (09:22)
[2021-11-25] MEDS: Zinc Gluconate 50 MG TAB PO SCH (09:22)
[2021-11-25] MEDS: Rifaximin 550 MG TAB PO SCH (09:23)
[2021-11-25] MEDS: Amiodarone 200 MG TAB PO SCH ×2 (09:23→21:02)
[2021-11-25] MEDS: Multivit, Therapeutic 1 TAB PO SCH (09:23)
[2021-11-25] MEDS: Folic Acid 1 MG TAB PO SCH (09:23)
[2021-11-25] MEDS: Pregabalin 75 MG CAP PO SCH ×2 (09:24→21:01)
[2021-11-25] MEDS: Ferrous Sulfate 325 MG TAB PO SCH ×2 (09:24→21:09)
[2021-11-25] MEDS: Thiamine 100 MG TAB PO SCH (09:25)
[2021-11-25] MEDS: Fluticasone Propionate Nasal Spray 16 gm Bottle NASAL SCH (10:29)
[2021-11-25] MEDS: Nystatin Powder 15 GM BOT TOP SCH (10:29)
[2021-11-25] MEDS: Guaifenesin DM 100-10/5 ML UDCUP PO PRN ×2 (10:29→21:00)
[2021-11-25] MEDS: Promethazine HCl 12.5 MG, Admixture Fee 1 EACH in Sodium Chloride 0.9% 50 ML IVPB PRN (15:54)
[2021-11-25] MEDS: Lidocaine 5% Patch TD SCH (18:48)
[2021-11-25] MEDS: Cholecalciferol 1,000 UNITS (25 MCG) TAB PO SCH (21:00)
[2021-11-25] MEDS: Calcium Carbonate 500 MG TAB PO SCH (21:02)
[2021-11-25] MEDS: Atorvastatin Calcium 10 MG TAB PO SCH (21:09)
[2021-11-26] MEDS: Albumin 25% 25 GM/100 ML BOT IVPB SCH ×4 (01:35→23:06)
[2021-11-26] MEDS: DEXTROSE IV SCH ×3 (02:12→21:32)
[2021-11-26] MEDS: ADMIXTURE FEE IV SCH ×3 (02:12→21:32)
[2021-11-26] MEDS: NACL IV SCH ×3 (02:12→21:32)
[2021-11-26] MEDS: SODIUM BICARBONATE IV SCH ×3 (02:12→21:32)
[2021-11-26 05:17] LABS: #Eosinphils 0.2 10x3/uL (0.0-0.5); #Monocytes 0.7 10x3/uL (0.0-1.1); #Neutrophils 6.1 10x3/uL (1.5-8.4); %Basophils 0.4 % (0.0-2.0); %Eosinophils 2.1 % (0.0-6.0); %Monocytes 8.8 % (0.0-10.0); %Neutrophils 75.5 % (40.0-75.0); Hemoglobin 7.5 g/dL (12.0-15.5); INR-International Normal Ratio 1.5; Mean Corpuscular HGB CONC 29.5 g/dL (32.0-36.0); Mean Corpuscular Hemoglobin 24.9 pg (27.0-33.0); Mean Corpuscular Volume 84.4 fl (81.6-98.3); Mean Platelet Volume 11.8 fl (7.4-10.4); Platelet Count 148 10x3/uL (150-450); Prothrombin Time 16.7 sec (9.5-12.1); RBC Distribution Width 18.1 % (11.5-14.5); Red Blood Cell (RBC) Count 3.01 10x6/uL (3.90-5.03)
[2021-11-26 05:26] LABS: ALT (SGPT) 25 U/L (8-55); AST (SGOT) 34 U/L (5-34); Albumin 4.1 g/dL (3.4-4.8); Alkaline Phosphatase 75 U/L (40-110); Anion Gap 21 mmol/L (10-20); BUN (Urea Nitrogen) 38 mg/dL (9.8-20.1); Calc. Creatinine Clearance 16 mL/min (70-130); Carbon Dioxide 17 mmol/L (23-31); Chloride 110 mmol/L (98-107); Globulin 1.9 g/dL (2.4-3.5); Glucose 117 mg/dL (80-115); Potassium 3.9 mmol/L (3.5-5.1); Sodium 144 mmol/L (136-145)
[2021-11-26] MEDS: Acetaminophen 325 MG TAB PO PRN (05:33)
[2021-11-26] MEDS: Levothyroxine Sodium 75 MCG TAB PO SCH (05:34)
[2021-11-26] MEDS: LIDOCAINE Patch Removal TOP SCH (05:46)
[2021-11-26 06:36] LABS: Anisocytosis MODERATE=16-30 cells (100X) (0-5/hpf); Hypochromia MARKED = >30 cells (100X) (0-5/hpf); Schistocytes MODERATE= 6-15 cells (100X) (0-1/hpf); Target Cells SLIGHT = 2-5 cells (100X) (0-1/hpf)
[2021-11-26 06:37] LABS: Crenated RBC SLIGHT = 1-5 cells (100X) (None Seen); Elliptocytes SLIGHT = 2-5 cells (100X) (0-1/hpf); Helmet Cells SLIGHT = 2-5 cells (100X) (0-1/hpf); Ovalocytes SLIGHT = 2-5 cells (100X) (0-1/hpf); Platelet Morphology Comment Appears Adequate
[2021-11-26] MEDS: Thiamine 100 MG TAB PO SCH (09:27)
[2021-11-26] MEDS: DULoxetine 30 MG CAP PO SCH (09:27)
[2021-11-26] MEDS: Metoprolol Tartrate 25 MG TAB PO SCH ×2 (09:27→23:00)
[2021-11-26] MEDS: Sodium Bicarbonate Tab 325 MG TAB PO SCH ×3 (09:28→21:33)
[2021-11-26] MEDS: Multivit, Therapeutic 1 TAB PO SCH (09:28)
[2021-11-26] MEDS: Ascorbic Acid 500 mg Chewable Tablet PO SCH (09:28)
[2021-11-26] MEDS: Ferrous Sulfate 325 MG TAB PO SCH ×2 (09:28→21:34)
[2021-11-26] MEDS: Folic Acid 1 MG TAB PO SCH (09:29)
[2021-11-26] MEDS: Amiodarone 200 MG TAB PO SCH ×2 (09:29→21:35)
[2021-11-26] MEDS: Pregabalin 75 MG CAP PO SCH ×2 (09:29→21:33)
[2021-11-26] MEDS: Zinc Gluconate 50 MG TAB PO SCH (09:29)
[2021-11-26] MEDS: Rifaximin 550 MG TAB PO SCH (09:29)
[2021-11-26] MEDS: Fluticasone Propionate Nasal Spray 16 gm Bottle NASAL SCH (09:30)
[2021-11-26] MEDS: Nystatin Powder 15 GM BOT TOP SCH (11:05)
[2021-11-26] MEDS: Octreotide Acetate 1,250 MCG, Admixture Fee 1 EACH in Sodium Chloride 0.9% 250 ML 250 ML IVPB SCH (16:49)
[2021-11-26] MEDS: Lidocaine 5% Patch TD SCH (17:38)
[2021-11-26] MEDS ORDERED: Ferrous Sulfate 325 MG TAB ONE (20:19)
[2021-11-26] MEDS: Calcium Carbonate 500 MG TAB PO SCH (21:34)
[2021-11-26] MEDS: Cholecalciferol 1,000 UNITS (25 MCG) TAB PO SCH (21:34)
[2021-11-26] MEDS: Atorvastatin Calcium 10 MG TAB PO SCH (23:04)
[2021-11-27] MEDS: Acetaminophen 325 MG TAB PO PRN (00:11)
[2021-11-27] MEDS: HYDROcodone/Acetaminophen 5/325 mg Tablet PO PRN ×3 (01:57→14:23)
[2021-11-27 05:37] LABS: #Basophils 0.1 10x3/uL (0.0-0.2); #Eosinphils 0.3 10x3/uL (0.0-0.5); #Monocytes 0.6 10x3/uL (0.0-1.1); #Neutrophils 4.8 10x3/uL (1.5-8.4); %Basophils 0.7 % (0.0-2.0); %Eosinophils 4.4 % (0.0-6.0); %Lymphocytes 15.1 % (18.0-47.0); %Monocytes 9.3 % (0.0-10.0); %Neutrophils 70.4 % (40.0-75.0); Hemoglobin 7.8 g/dL (12.0-15.5); Mean Corpuscular HGB CONC 29.3 g/dL (32.0-36.0); Mean Corpuscular Hemoglobin 24.1 pg (27.0-33.0); Mean Corpuscular Volume 82.1 fl (81.6-98.3); Mean Platelet Volume 12.2 fl (7.4-10.4); Platelet Count 138 10x3/uL (150-450); RBC Distribution Width 18.5 % (11.5-14.5); Red Blood Cell (RBC) Count 3.24 10x6/uL (3.90-5.03); White Blood Cell (WBC) Count 6.9 10x3/uL (3.5-10.5)
[2021-11-27 05:39] LABS: INR-International Normal Ratio 1.6
[2021-11-27 05:57] LABS: ALT (SGPT) 21 U/L (8-55); AST (SGOT) 29 U/L (5-34); Alkaline Phosphatase 68 U/L (40-110); Anion Gap 17 mmol/L (10-20); BUN (Urea Nitrogen) 37 mg/dL (9.8-20.1); Bilirubin, Total 0.9 mg/dL (0.2-1.2); Calc. Creatinine Clearance 15 mL/min (70-130); Calcium 7.9 mg/dL (7.8-10.44); Carbon Dioxide 21 mmol/L (23-31); Chloride 111 mmol/L (98-107); Globulin 1.8 g/dL (2.4-3.5); Glucose 125 mg/dL (80-115); Potassium 3.9 mmol/L (3.5-5.1); Protein, Total 5.8 g/dL (5.8-8.1); Sodium 145 mmol/L (136-145)
[2021-11-27] MEDS: LIDOCAINE Patch Removal TOP SCH (06:39)
[2021-11-27] MEDS: Levothyroxine Sodium 75 MCG TAB PO SCH (06:39)
[2021-11-27] MEDS: Albumin 25% 25 GM/100 ML BOT IVPB SCH ×3 (07:44→19:10)
[2021-11-27] MEDS: Rifaximin 550 MG TAB PO SCH (08:09)
[2021-11-27] MEDS: Sodium Bicarbonate Tab 325 MG TAB PO SCH ×3 (08:09→20:56)
[2021-11-27] MEDS: Pregabalin 75 MG CAP PO SCH (08:09)
[2021-11-27] MEDS: Zinc Gluconate 50 MG TAB PO SCH (08:09)
[2021-11-27] MEDS: Thiamine 100 MG TAB PO SCH (08:09)
[2021-11-27] MEDS: Amiodarone 200 MG TAB PO SCH ×2 (08:28→20:56)
[2021-11-27] MEDS: Ferrous Sulfate 325 MG TAB PO SCH ×2 (08:28→20:56)
[2021-11-27] MEDS: DULoxetine 30 MG CAP PO SCH (08:28)
[2021-11-27] MEDS: Fluticasone Propionate Nasal Spray 16 gm Bottle NASAL SCH (08:28)
[2021-11-27] MEDS: Folic Acid 1 MG TAB PO SCH (08:28)
[2021-11-27] MEDS: Ascorbic Acid 500 mg Chewable Tablet PO SCH (08:28)
[2021-11-27] MEDS: Metoprolol Tartrate 25 MG TAB PO SCH ×2 (08:28→20:56)
[2021-11-27] MEDS: Multivit, Therapeutic 1 TAB PO SCH (08:29)
[2021-11-27] MEDS: Nystatin Powder 15 GM BOT TOP SCH (08:29)
[2021-11-27] MEDS: Octreotide Acetate 500 MCG/ML VIAL SC SCH (14:22)
[2021-11-27] MEDS: Lidocaine 5% Patch TD SCH (17:51)
[2021-11-27] MEDS ORDERED: Ferrous Sulfate 325 MG TAB ONE (20:37)
[2021-11-27] MEDS: Cholecalciferol 1,000 UNITS (25 MCG) TAB PO SCH (20:56)
[2021-11-27] MEDS: Calcium Carbonate 500 MG TAB PO SCH (20:56)
[2021-11-27] MEDS: Atorvastatin Calcium 10 MG TAB PO SCH (20:56)
[2021-11-27] MEDS: DEXTROSE IV SCH (23:26)
[2021-11-27] MEDS: SODIUM BICARBONATE IV SCH (23:26)
[2021-11-27] MEDS: ADMIXTURE FEE IV SCH (23:26)
[2021-11-27] MEDS: NACL IV SCH (23:26)
[2021-11-28] MEDS: Albumin 25% 25 GM/100 ML BOT IVPB SCH (00:53)
[2021-11-28] MEDS: Octreotide Acetate 500 MCG/ML VIAL SC SCH ×2 (00:54→12:17)
[2021-11-28] MEDS ORDERED: Pregabalin 25 MG CAP PO SCH (01:00)
[2021-11-28] MEDS: Levothyroxine Sodium 75 MCG TAB PO SCH (05:28)
[2021-11-28] MEDS: LIDOCAINE Patch Removal TOP SCH (05:51)
[2021-11-28] MEDS: Fluticasone Propionate Nasal Spray 16 gm Bottle NASAL SCH (09:42)
[2021-11-28] MEDS: Rifaximin 550 MG TAB PO SCH (09:43)
[2021-11-28] MEDS: Thiamine 100 MG TAB PO SCH (09:43)
[2021-11-28] MEDS: Zinc Gluconate 50 MG TAB PO SCH (09:43)
[2021-11-28] MEDS: Ascorbic Acid 500 mg Chewable Tablet PO SCH (09:43)
[2021-11-28] MEDS: Metoprolol Tartrate 25 MG TAB PO SCH ×2 (09:43→21:18)
[2021-11-28] MEDS: Folic Acid 1 MG TAB PO SCH (09:43)
[2021-11-28] MEDS: Ferrous Sulfate 325 MG TAB PO SCH ×2 (09:44→21:19)
[2021-11-28] MEDS: Pregabalin 75 MG CAP PO SCH (09:44)
[2021-11-28] MEDS: DULoxetine 30 MG CAP PO SCH (09:44)
[2021-11-28] MEDS: Sodium Bicarbonate Tab 325 MG TAB PO SCH ×3 (09:44→21:18)
[2021-11-28] MEDS: Multivit, Therapeutic 1 TAB PO SCH (09:45)
[2021-11-28] MEDS: Amiodarone 200 MG TAB PO SCH ×2 (09:45→21:18)
[2021-11-28] MEDS: Nystatin Powder 15 GM BOT TOP SCH (09:56)
[2021-11-28 09:58] LABS: Anion Gap 23 mmol/L (10-20); BUN (Urea Nitrogen) 40 mg/dL (9.8-20.1); Calc. Creatinine Clearance 15 mL/min (70-130); Calcium 7.8 mg/dL (7.8-10.44); Carbon Dioxide 16 mmol/L (23-31); Chloride 110 mmol/L (98-107); Glucose 98 mg/dL (80-115); Potassium 3.6 mmol/L (3.5-5.1); Sodium 145 mmol/L (136-145)
[2021-11-28] MEDS: ADMIXTURE FEE IV SCH ×2 (12:09→17:26)
[2021-11-28] MEDS: NACL IV SCH ×2 (12:09→17:26)
[2021-11-28] MEDS: hydrALAZINE 20 MG/ML VIAL SLOW IVP PRN (12:09)
[2021-11-28] MEDS: DEXTROSE IV SCH ×2 (12:09→17:26)
[2021-11-28] MEDS: SODIUM BICARBONATE IV SCH ×2 (12:09→17:26)
[2021-11-28] MEDS: HYDROcodone/Acetaminophen 5/325 mg Tablet PO PRN ×2 (15:27→22:31)
[2021-11-28] MEDS: Lidocaine 5% Patch TD SCH (17:06)
[2021-11-28] MEDS ORDERED: Ferrous Sulfate 325 MG TAB ONE (20:15)
[2021-11-28] MEDS: Calcium Carbonate 500 MG TAB PO SCH (21:19)
[2021-11-28] MEDS: Atorvastatin Calcium 10 MG TAB PO SCH (21:20)
[2021-11-28] MEDS: Cholecalciferol 1,000 UNITS (25 MCG) TAB PO SCH (21:20)
[2021-11-29] MEDS: Octreotide Acetate 500 MCG/ML VIAL SC SCH ×2 (01:01→13:44)
[2021-11-29] MEDS: Levothyroxine Sodium 75 MCG TAB PO SCH (06:05)
[2021-11-29] MEDS: LIDOCAINE Patch Removal TOP SCH (06:05)
[2021-11-29] MEDS ORDERED: Albumin 25% 25 GM/100 ML BOT IVPB SCH (08:30)
[2021-11-29] MEDS: Fluticasone Propionate Nasal Spray 16 gm Bottle NASAL SCH (08:43)
[2021-11-29] MEDS: Pregabalin 75 MG CAP PO SCH (08:44)
[2021-11-29] MEDS: Multivit, Therapeutic 1 TAB PO SCH (08:44)
[2021-11-29] MEDS: Rifaximin 550 MG TAB PO SCH (08:44)
[2021-11-29] MEDS: Folic Acid 1 MG TAB PO SCH (08:44)
[2021-11-29] MEDS: Sodium Bicarbonate Tab 325 MG TAB PO SCH (08:44)
[2021-11-29] MEDS: Amiodarone 200 MG TAB PO SCH ×2 (08:45→20:47)
[2021-11-29] MEDS: Ferrous Sulfate 325 MG TAB PO SCH ×2 (08:45→20:47)
[2021-11-29] MEDS: Ascorbic Acid 500 mg Chewable Tablet PO SCH (08:45)
[2021-11-29] MEDS: Nystatin Powder 15 GM BOT TOP SCH (08:45)
[2021-11-29] MEDS: Thiamine 100 MG TAB PO SCH (08:45)
[2021-11-29] MEDS: Metoprolol Tartrate 25 MG TAB PO SCH ×2 (08:45→20:47)
[2021-11-29] MEDS: DULoxetine 30 MG CAP PO SCH (08:45)
[2021-11-29] MEDS: Zinc Gluconate 50 MG TAB PO SCH (08:45)
[2021-11-29 08:54] LABS: Hemoglobin 7.5 g/dL (12.0-15.5); Mean Corpuscular Hemoglobin 23.9 pg (27.0-33.0); Mean Corpuscular Volume 82.5 fl (81.6-98.3); Platelet Count 78 10x3/uL (150-450); RBC Distribution Width 19.4 % (11.5-14.5); Red Blood Cell (RBC) Count 3.14 10x6/uL (3.90-5.03); White Blood Cell (WBC) Count 4.6 10x3/uL (3.5-10.5)
[2021-11-29] MEDS: hydrALAZINE 20 MG/ML VIAL SLOW IVP PRN ×3 (08:57→16:57)
[2021-11-29 08:58] LABS: Anion Gap 19 mmol/L (10-20); BUN (Urea Nitrogen) 40 mg/dL (9.8-20.1); Calc. Creatinine Clearance 16 mL/min (70-130); Calcium 8.1 mg/dL (7.8-10.44); Carbon Dioxide 21 mmol/L (23-31); Chloride 109 mmol/L (98-107); Glucose 121 mg/dL (80-115); Sodium 146 mmol/L (136-145)
[2021-11-29 09:02] LABS: Potassium 2.9 mmol/L (3.5-5.1)
[2021-11-29] MEDS ORDERED: Cepastat Lozenges 1 LOZ PO PRN (09:17)
[2021-11-29] MEDS: Potassium Chloride 10 MEQ in Premix Bag 1 BAG IVPB SCH ×6 (09:52→20:47)
[2021-11-29] MEDS: Lidocaine 5% Patch TD SCH (16:53)
[2021-11-29] MEDS ORDERED: Ferrous Sulfate 325 MG TAB ONE (19:54)
[2021-11-29] MEDS: Cholecalciferol 1,000 UNITS (25 MCG) TAB PO SCH (20:47)
[2021-11-29] MEDS: Calcium Carbonate 500 MG TAB PO SCH (20:47)
[2021-11-29] MEDS: Atorvastatin Calcium 10 MG TAB PO SCH (20:47)
[2021-11-29] MEDS: HYDROcodone/Acetaminophen 5/325 mg Tablet PO PRN (22:09)
[2021-11-30] MEDS: Octreotide Acetate 500 MCG/ML VIAL SC SCH ×2 (01:38→13:13)
[2021-11-30] MEDS: HYDROcodone/Acetaminophen 5/325 mg Tablet PO PRN ×2 (05:20→15:36)
[2021-11-30] MEDS: Levothyroxine Sodium 75 MCG TAB PO SCH (05:21)
[2021-11-30] MEDS: hydrALAZINE 20 MG/ML VIAL SLOW IVP PRN (05:44)
[2021-11-30 05:49] LABS: Phosphorus 2.8 mg/dL (2.3-4.7)
[2021-11-30 05:51] LABS: Anion Gap 20 mmol/L (10-20); BUN (Urea Nitrogen) 42 mg/dL (9.8-20.1); Calc. Creatinine Clearance 17 mL/min (70-130); Calcium 8.3 mg/dL (7.8-10.44); Carbon Dioxide 19 mmol/L (23-31); Chloride 109 mmol/L (98-107); Glucose 85 mg/dL (80-115); Magnesium 1.5 mg/dL (1.6-2.6); Potassium 3.9 mmol/L (3.5-5.1); Sodium 144 mmol/L (136-145)
[2021-11-30] MEDS: LIDOCAINE Patch Removal TOP SCH (06:12)
[2021-11-30 06:15] LABS: Platelet Count 67 10x3/uL (150-450)
[2021-11-30 06:16] LABS: Hemoglobin 7.9 g/dL (12.0-15.5); Mean Corpuscular HGB CONC 30.3 g/dL (32.0-36.0); Mean Corpuscular Hemoglobin 24.1 pg (27.0-33.0); Mean Corpuscular Volume 79.6 fl (81.6-98.3); RBC Distribution Width 19.9 % (11.5-14.5); Red Blood Cell (RBC) Count 3.28 10x6/uL (3.90-5.03); White Blood Cell (WBC) Count 5.4 10x3/uL (3.5-10.5)
[2021-11-30] MEDS ORDERED: Magnesium 2 GM/50 ML 2 GM in Premix Bag 1 BAG IVPB SCH (07:15)
[2021-11-30] MEDS: Ascorbic Acid 500 mg Chewable Tablet PO SCH (08:32)
[2021-11-30] MEDS: Folic Acid 1 MG TAB PO SCH (08:33)
[2021-11-30] MEDS: Pregabalin 75 MG CAP PO SCH (08:33)
[2021-11-30] MEDS: Amiodarone 200 MG TAB PO SCH ×2 (08:33→21:25)
[2021-11-30] MEDS: DULoxetine 30 MG CAP PO SCH (08:33)
[2021-11-30] MEDS: Multivit, Therapeutic 1 TAB PO SCH (08:33)
[2021-11-30] MEDS: Thiamine 100 MG TAB PO SCH (08:33)
[2021-11-30] MEDS: Zinc Gluconate 50 MG TAB PO SCH (08:33)
[2021-11-30] MEDS: Metoprolol Tartrate 25 MG TAB PO SCH ×2 (08:33→21:24)
[2021-11-30] MEDS: Fluticasone Propionate Nasal Spray 16 gm Bottle NASAL SCH (08:34)
[2021-11-30] MEDS: Rifaximin 550 MG TAB PO SCH (08:34)
[2021-11-30] MEDS: Nystatin Powder 15 GM BOT TOP SCH (08:34)
[2021-11-30] MEDS: Ferrous Sulfate 325 MG TAB PO SCH ×2 (08:34→21:24)
[2021-11-30] MEDS: Lidocaine 5% Patch TD SCH (17:40)
[2021-11-30 18:45] LABS: Anion Gap 17 mmol/L (10-20); BUN (Urea Nitrogen) 42 mg/dL (9.8-20.1); Calc. Creatinine Clearance 18 mL/min (70-130); Carbon Dioxide 23 mmol/L (23-31); Chloride 109 mmol/L (98-107); Potassium 3.7 mmol/L (3.5-5.1); Sodium 145 mmol/L (136-145)
[2021-11-30 18:46] LABS: ALT (SGPT) 15 U/L (8-55); AST (SGOT) 29 U/L (5-34); Albumin 4.4 g/dL (3.4-4.8); Alkaline Phosphatase 61 U/L (40-110); Bilirubin, Total 1.7 mg/dL (0.2-1.2); Calcium 8.5 mg/dL (7.8-10.44); Globulin 1.6 g/dL (2.4-3.5); Glucose 100 mg/dL (80-115)
[2021-11-30] MEDS ORDERED: Ferrous Sulfate 325 MG TAB ONE (19:57)
[2021-11-30] MEDS: Atorvastatin Calcium 10 MG TAB PO SCH (21:25)
[2021-11-30] MEDS: Calcium Carbonate 500 MG TAB PO SCH (21:25)
[2021-11-30] MEDS: Cholecalciferol 1,000 UNITS (25 MCG) TAB PO SCH (21:25)
[2021-12-01] MEDS: Octreotide Acetate 500 MCG/ML VIAL SC SCH ×3 (00:08→23:42)
[2021-12-01] MEDS: Ventolin HFA Inhaler 60 PUFF INHALER INH PRN (02:30)
[2021-12-01] MEDS: HYDROcodone/Acetaminophen 5/325 mg Tablet PO PRN ×2 (05:31→20:11)
[2021-12-01 05:40] LABS: Anion Gap 18 mmol/L (10-20); BUN (Urea Nitrogen) 42 mg/dL (9.8-20.1); Calc. Creatinine Clearance 19 mL/min (70-130); Calcium 8.5 mg/dL (7.8-10.44); Carbon Dioxide 20 mmol/L (23-31); Chloride 110 mmol/L (98-107); Glucose 90 mg/dL (80-115); Potassium 3.9 mmol/L (3.5-5.1); Sodium 144 mmol/L (136-145)
[2021-12-01 06:19] LABS: Mean Corpuscular HGB CONC 30.2 g/dL (32.0-36.0); Mean Corpuscular Volume 79.6 fl (81.6-98.3); RBC Distribution Width 21.2 % (11.5-14.5); Red Blood Cell (RBC) Count 3.33 10x6/uL (3.90-5.03); White Blood Cell (WBC) Count 5.6 10x3/uL (3.5-10.5)
[2021-12-01 06:22] LABS: Platelet Count 64 10x3/uL (150-450)
[2021-12-01] MEDS: Levothyroxine Sodium 75 MCG TAB PO SCH (06:22)
[2021-12-01] MEDS: LIDOCAINE Patch Removal TOP SCH (06:23)
[2021-12-01] MEDS ORDERED: Albumin 25% 25 GM/100 ML BOT IVPB SCH (09:00)
[2021-12-01] MEDS: Multivit, Therapeutic 1 TAB PO SCH ×2 (09:06→09:12)
[2021-12-01] MEDS: Ascorbic Acid 500 mg Chewable Tablet PO SCH (09:09)
[2021-12-01] MEDS: Folic Acid 1 MG TAB PO SCH (09:09)
[2021-12-01] MEDS: DULoxetine 30 MG CAP PO SCH (09:09)
[2021-12-01] MEDS: Fluticasone Propionate Nasal Spray 16 gm Bottle NASAL SCH (09:09)
[2021-12-01] MEDS: Ferrous Sulfate 325 MG TAB PO SCH ×2 (09:09→20:12)
[2021-12-01] MEDS: Amiodarone 200 MG TAB PO SCH ×2 (09:09→20:10)
[2021-12-01] MEDS: Metoprolol Tartrate 25 MG TAB PO SCH ×2 (09:12→20:11)
[2021-12-01] MEDS: Pregabalin 75 MG CAP PO SCH (09:13)
[2021-12-01] MEDS: Rifaximin 550 MG TAB PO SCH (09:13)
[2021-12-01] MEDS: Nystatin Powder 15 GM BOT TOP SCH (09:13)
[2021-12-01] MEDS: Zinc Gluconate 50 MG TAB PO SCH (09:14)
[2021-12-01] MEDS: Thiamine 100 MG TAB PO SCH (09:14)
[2021-12-01] MEDS ORDERED: Chloraseptic Spray 180 ml Bottle PO PRN (09:34)
[2021-12-01] MEDS ORDERED: hydrOXYzine 10 MG TAB PO SCH (09:45)
[2021-12-01 15:45] LABS: #Basophils 0.1 10x3/uL (0.0-0.2); #Eosinphils 0.2 10x3/uL (0.0-0.5); #Monocytes 0.7 10x3/uL (0.0-1.1); #Neutrophils 3.2 10x3/uL (1.5-8.4); %Basophils 1.2 % (0.0-2.0); %Lymphocytes 18.1 % (18.0-47.0); %Monocytes 13.2 % (0.0-10.0); %Neutrophils 63.7 % (40.0-75.0); Hemoglobin 7.9 g/dL (12.0-15.5); Mean Corpuscular HGB CONC 28.9 g/dL (32.0-36.0); Platelet Count 49 10x3/uL (150-450); RBC Distribution Width 21.5 % (11.5-14.5); Red Blood Cell (RBC) Count 3.29 10x6/uL (3.90-5.03); White Blood Cell (WBC) Count 5.2 10x3/uL (3.5-10.5)
[2021-12-01] MEDS: Lidocaine 5% Patch TD SCH (18:28)
[2021-12-01] MEDS ORDERED: Ferrous Sulfate 325 MG TAB ONE (19:51)
[2021-12-01] MEDS: Atorvastatin Calcium 10 MG TAB PO SCH (20:11)
[2021-12-01] MEDS: Cholecalciferol 1,000 UNITS (25 MCG) TAB PO SCH (20:11)
[2021-12-01] MEDS: Calcium Carbonate 500 MG TAB PO SCH (20:11)
[2021-12-02] MEDS: LIDOCAINE Patch Removal TOP SCH (05:45)
[2021-12-02] MEDS: Levothyroxine Sodium 75 MCG TAB PO SCH (05:45)
[2021-12-02 06:34] LABS: Anion Gap 19 mmol/L (10-20); BUN (Urea Nitrogen) 42 mg/dL (9.8-20.1); Calc. Creatinine Clearance 21 mL/min (70-130); Calcium 8.7 mg/dL (7.8-10.44); Carbon Dioxide 20 mmol/L (23-31); Chloride 109 mmol/L (98-107); Glucose 91 mg/dL (80-115); Potassium 3.8 mmol/L (3.5-5.1); Sodium 144 mmol/L (136-145)
[2021-12-02] MEDS: Albumin 25% 25 GM/100 ML BOT IVPB SCH ×2 (08:55→09:39)
[2021-12-02] MEDS: Folic Acid 1 MG TAB PO SCH (08:56)
[2021-12-02] MEDS: Metoprolol Tartrate 25 MG TAB PO SCH ×2 (08:56→20:42)
[2021-12-02] MEDS: Thiamine 100 MG TAB PO SCH (08:56)
[2021-12-02] MEDS: Multivit, Therapeutic 1 TAB PO SCH (08:56)
[2021-12-02] MEDS: Zinc Gluconate 50 MG TAB PO SCH (08:56)
[2021-12-02] MEDS: DULoxetine 30 MG CAP PO SCH (08:56)
[2021-12-02] MEDS: Pregabalin 75 MG CAP PO SCH (08:56)
[2021-12-02] MEDS: Amiodarone 200 MG TAB PO SCH ×2 (08:56→20:42)
[2021-12-02] MEDS: Ferrous Sulfate 325 MG TAB PO SCH ×2 (08:56→20:43)
[2021-12-02] MEDS: Ascorbic Acid 500 mg Chewable Tablet PO SCH (08:57)
[2021-12-02] MEDS: Rifaximin 550 MG TAB PO SCH (08:57)
[2021-12-02] MEDS: hydrALAZINE 20 MG/ML VIAL SLOW IVP PRN (09:43)
[2021-12-02] MEDS: Nystatin Powder 15 GM BOT TOP SCH (10:56)
[2021-12-02] MEDS: Fluticasone Propionate Nasal Spray 16 gm Bottle NASAL SCH (10:56)
[2021-12-02] MEDS: Octreotide Acetate 500 MCG/ML VIAL SC SCH ×2 (13:54→23:36)
[2021-12-02] MEDS ORDERED: cloNIDine 0.1 MG TAB PO SCH (14:00)
[2021-12-02] MEDS: Lidocaine 5% Patch TD SCH (19:02)
[2021-12-02] MEDS ORDERED: NIFEdipine XL 60 MG TAB PO SCH (20:00)
[2021-12-02] MEDS ORDERED: Ferrous Sulfate 325 MG TAB ONE (20:04)
[2021-12-02] MEDS: Cholecalciferol 1,000 UNITS (25 MCG) TAB PO SCH (20:42)
[2021-12-02] MEDS: Calcium Carbonate 500 MG TAB PO SCH (20:43)
[2021-12-02] MEDS: Atorvastatin Calcium 10 MG TAB PO SCH (20:43)
[2021-12-03 05:26] LABS: Anion Gap 22 mmol/L (10-20); BUN (Urea Nitrogen) 43 mg/dL (9.8-20.1); Calc. Creatinine Clearance 24 mL/min (70-130); Calcium 8.9 mg/dL (7.8-10.44); Carbon Dioxide 16 mmol/L (23-31); Chloride 110 mmol/L (98-107); Glucose 73 mg/dL (80-115); Sodium 144 mmol/L (136-145)
[2021-12-03] MEDS: Ventolin HFA Inhaler 60 PUFF INHALER INH PRN (05:29)
[2021-12-03] MEDS: Levothyroxine Sodium 75 MCG TAB PO SCH (06:13)
[2021-12-03] MEDS ORDERED: Metoprolol Tartrate 25 MG TAB PO SCH (06:15)
[2021-12-03 06:30] LABS: Platelet Count 59 10x3/uL (150-450)
[2021-12-03 06:31] LABS: Hemoglobin 8.6 g/dL (12.0-15.5); Mean Corpuscular HGB CONC 30.3 g/dL (32.0-36.0); Mean Corpuscular Hemoglobin 24.4 pg (27.0-33.0); Mean Corpuscular Volume 80.5 fl (81.6-98.3); RBC Distribution Width 22.5 % (11.5-14.5); Red Blood Cell (RBC) Count 3.53 10x6/uL (3.90-5.03); White Blood Cell (WBC) Count 7.9 10x3/uL (3.5-10.5)
[2021-12-03] MEDS: LIDOCAINE Patch Removal TOP SCH (08:42)
[2021-12-03] MEDS: DULoxetine 30 MG CAP PO SCH (11:25)
[2021-12-03] MEDS: Multivit, Therapeutic 1 TAB PO SCH (11:25)
[2021-12-03] MEDS: Amiodarone 200 MG TAB PO SCH ×2 (11:26→20:22)
[2021-12-03] MEDS: Rifaximin 550 MG TAB PO SCH (11:26)
[2021-12-03] MEDS: Folic Acid 1 MG TAB PO SCH (11:26)
[2021-12-03] MEDS: Thiamine 100 MG TAB PO SCH (11:26)
[2021-12-03] MEDS: Zinc Gluconate 50 MG TAB PO SCH (11:27)
[2021-12-03] MEDS: Ferrous Sulfate 325 MG TAB PO SCH ×2 (11:27→20:22)
[2021-12-03] MEDS: Ascorbic Acid 500 mg Chewable Tablet PO SCH (11:27)
[2021-12-03] MEDS: NIFEdipine XL 60 MG TAB PO SCH (11:27)
[2021-12-03] MEDS: Fluticasone Propionate Nasal Spray 16 gm Bottle NASAL SCH (11:29)
[2021-12-03] MEDS: Pregabalin 75 MG CAP PO SCH (11:29)
[2021-12-03] MEDS: Metoprolol Tartrate 25 MG TAB PO SCH (11:29)
[2021-12-03] MEDS: Nystatin Powder 15 GM BOT TOP SCH (11:30)
[2021-12-03] MEDS: Albumin 25% 25 GM/100 ML BOT IVPB SCH (11:46)
[2021-12-03] MEDS ORDERED: Metoprolol Tartrate 5 MG/5 ML VIAL IVP SCH (13:00)
[2021-12-03] MEDS: Octreotide Acetate 500 MCG/ML VIAL SC SCH (14:15)
[2021-12-03] MEDS: Lidocaine 5% Patch TD SCH (18:02)
[2021-12-03] MEDS: Atorvastatin Calcium 10 MG TAB PO SCH (20:22)
[2021-12-03] MEDS: Calcium Carbonate 500 MG TAB PO SCH (20:22)
[2021-12-03] MEDS: Cholecalciferol 1,000 UNITS (25 MCG) TAB PO SCH (20:22)
[2021-12-03] MEDS: HYDROcodone/Acetaminophen 5/325 mg Tablet PO PRN (20:25)
[2021-12-03] MEDS: Promethazine HCl 12.5 MG, Admixture Fee 1 EACH in Sodium Chloride 0.9% 50 ML IVPB PRN (21:35)
[2021-12-04] MEDS: Octreotide Acetate 500 MCG/ML VIAL SC SCH ×3 (01:25→23:51)
[2021-12-04] MEDS: Metoprolol Tartrate 25 MG TAB PO SCH ×3 (01:30→20:48)
[2021-12-04 04:16] LABS: Hemoglobin 8.8 g/dL (12.0-15.5); Mean Corpuscular Hemoglobin 24.3 pg (27.0-33.0); Mean Corpuscular Volume 80.9 fl (81.6-98.3); Platelet Count 44 10x3/uL (150-450); RBC Distribution Width 23.3 % (11.5-14.5); Red Blood Cell (RBC) Count 3.62 10x6/uL (3.90-5.03)
[2021-12-04 04:17] LABS: Anion Gap 21 mmol/L (10-20); BUN (Urea Nitrogen) 44 mg/dL (9.8-20.1); Calc. Creatinine Clearance 21 mL/min (70-130); Calcium 8.7 mg/dL (7.8-10.44); Carbon Dioxide 16 mmol/L (23-31); Chloride 110 mmol/L (98-107); Glucose 128 mg/dL (80-115); Sodium 143 mmol/L (136-145)
[2021-12-04] MEDS: Levothyroxine Sodium 75 MCG TAB PO SCH (05:31)
[2021-12-04] MEDS: LIDOCAINE Patch Removal TOP SCH (05:53)
[2021-12-04] MEDS ORDERED: Albumin 25% 25 GM/100 ML BOT IVPB SCH (08:00)
[2021-12-04] MEDS ORDERED: Lidocaine 2% Viscous Solution 10 ML, Aluminum & Magnesium Hydroxide 30 ML SSW SCH (09:00)
[2021-12-04] MEDS: NIFEdipine XL 60 MG TAB PO SCH (09:17)
[2021-12-04] MEDS: Fluticasone Propionate Nasal Spray 16 gm Bottle NASAL SCH (09:27)
[2021-12-04] MEDS: Rifaximin 550 MG TAB PO SCH (09:27)
[2021-12-04] MEDS: Amiodarone 200 MG TAB PO SCH ×2 (09:28→20:47)
[2021-12-04] MEDS: Pregabalin 75 MG CAP PO SCH (09:28)
[2021-12-04] MEDS: DULoxetine 30 MG CAP PO SCH (09:28)
[2021-12-04] MEDS: Famotidine 20 MG TAB PO SCH (09:29)
[2021-12-04] MEDS: Multivit, Therapeutic 1 TAB PO SCH (09:29)
[2021-12-04] MEDS: Zinc Gluconate 50 MG TAB PO SCH (09:29)
[2021-12-04] MEDS: Ascorbic Acid 500 mg Chewable Tablet PO SCH (09:29)
[2021-12-04] MEDS: Folic Acid 1 MG TAB PO SCH (09:29)
[2021-12-04] MEDS: Ferrous Sulfate 325 MG TAB PO SCH ×2 (09:29→20:46)
[2021-12-04] MEDS: Thiamine 100 MG TAB PO SCH (09:29)
[2021-12-04] MEDS: Nystatin Powder 15 GM BOT TOP SCH (09:31)
[2021-12-04] MEDS ORDERED: Metoprolol Tartrate 25 MG TAB PO SCH (10:00)
[2021-12-04] MEDS: Promethazine HCl 12.5 MG, Admixture Fee 1 EACH in Sodium Chloride 0.9% 50 ML IVPB PRN (11:30)
[2021-12-04] MEDS: Acetaminophen 325 MG TAB PO PRN (13:36)
[2021-12-04] MEDS: Lidocaine 5% Patch TD SCH (18:12)
[2021-12-04] MEDS ORDERED: Ferrous Sulfate 325 MG TAB ONE (20:44)
[2021-12-04] MEDS: Cholecalciferol 1,000 UNITS (25 MCG) TAB PO SCH (20:47)
[2021-12-04] MEDS: Atorvastatin Calcium 10 MG TAB PO SCH (20:47)
[2021-12-04] MEDS: Calcium Carbonate 500 MG TAB PO SCH (21:00)
[2021-12-05] MEDS: Acetaminophen 325 MG TAB PO PRN (04:12)
[2021-12-05 04:46] LABS: Anion Gap 27 mmol/L (10-20); BUN (Urea Nitrogen) 49 mg/dL (9.8-20.1); Calc. Creatinine Clearance 15 mL/min (70-130); Calcium 9.3 mg/dL (7.8-10.44); Carbon Dioxide 11 mmol/L (23-31); Chloride 108 mmol/L (98-107); Glucose 124 mg/dL (80-115); Potassium 4.1 mmol/L (3.5-5.1); Sodium 142 mmol/L (136-145)
[2021-12-05 05:05] LABS: Hemoglobin 8.4 g/dL (12.0-15.5); Mean Corpuscular Hemoglobin 24.9 pg (27.0-33.0); Mean Corpuscular Volume 85.8 fl (81.6-98.3); Platelet Count 70 10x3/uL (150-450); RBC Distribution Width 24.6 % (11.5-14.5); Red Blood Cell (RBC) Count 3.38 10x6/uL (3.90-5.03); White Blood Cell (WBC) Count 25.1 10x3/uL (3.5-10.5)
[2021-12-05] MEDS: Levothyroxine Sodium 75 MCG TAB PO SCH (06:05)
[2021-12-05] MEDS: LIDOCAINE Patch Removal TOP SCH (06:05)
[2021-12-05] MEDS ORDERED: Albumin 25% 25 GM/100 ML BOT IVPB SCH (08:00)
[2021-12-05] MEDS: Metoprolol Tartrate 25 MG TAB PO SCH (09:12)
[2021-12-05] MEDS: Fluticasone Propionate Nasal Spray 16 gm Bottle NASAL SCH (09:16)
[2021-12-05] MEDS: Ferrous Sulfate 325 MG TAB PO SCH (09:18)
[2021-12-05] MEDS: DULoxetine 30 MG CAP PO SCH (09:18)
[2021-12-05] MEDS: Zinc Gluconate 50 MG TAB PO SCH (09:19)
[2021-12-05] MEDS: Rifaximin 550 MG TAB PO SCH (09:19)
[2021-12-05] MEDS: Famotidine 20 MG TAB PO SCH (09:19)
[2021-12-05] MEDS: Pregabalin 75 MG CAP PO SCH (09:20)
[2021-12-05] MEDS: Multivit, Therapeutic 1 TAB PO SCH (09:20)
[2021-12-05] MEDS: Thiamine 100 MG TAB PO SCH (09:20)
[2021-12-05] MEDS: Folic Acid 1 MG TAB PO SCH (09:20)
[2021-12-05] MEDS: Amiodarone 200 MG TAB PO SCH (09:21)
[2021-12-05] MEDS: Ascorbic Acid 500 mg Chewable Tablet PO SCH (09:22)
[2021-12-05] MEDS ORDERED: Dextrose 5% in Water 1,000 ML IV SCH (10:00)
[2021-12-05] MEDS ORDERED: Dextrose 5% in Water 1,000 ML ONE (10:27)
[2021-12-05] MEDS: Ipratropium Bromide 2.5 ml Neb ONE ×2 (11:10→11:59)
[2021-12-05] MEDS: Albuterol Sulfate 2.5 mg/3 ml Neb ONE ×2 (11:10→11:59)
[2021-12-05] MEDS: Nystatin Powder 15 GM BOT TOP SCH (11:20)
[2021-12-05] MEDS ORDERED: Morphine 4 MG/ML VIAL SLOW IVP SCH (11:30)
[2021-12-05] MEDS: Octreotide Acetate 500 MCG/ML VIAL SC SCH (11:48)
[2021-12-05] MEDS ORDERED: Furosemide 40 MG/4 ML VIAL SLOW IVP SCH (12:15)
[2021-12-05] MEDS ORDERED: metroNIDAZOLE 500 MG TAB PO SCH (12:45)
[2021-12-05] MEDS ORDERED: Sodium Bicarbonate 150 MEQ in Dextrose 5% in Water 1,000 ML IV SCH (14:45)
[2021-12-05] MEDS ORDERED: Meropenem 1 GM in Sodium Chloride 0.9% 100 ML IVPB SCH (16:00)
[2021-12-05] MEDS: Sodium Bicarbonate 75 MEQ, Admixture Fee 1 EACH in Dextrose 5% in Water 500 ML IV SCH (16:35)
[2021-12-05] MEDS: Lidocaine 5% Patch TD SCH (18:39)
[2021-12-05] MEDS ORDERED: Ferrous Sulfate 325 MG TAB ONE (21:00)
[2021-12-05 23:52] LABS: ALV-art Gradient 570.275 mmHg (0-20); Actual Bicarbonate (HCO3a) 16.5 mEq/L (22-28); Base Excess (BEa) -10.3 mEq/L (-2.0 to +3.0); CO2 Tension 40.1 mmHg (35.0-45.0); Calcium, Ionized (arterial) 1.26 mmol/L (1.12-1.30); Carboxyhemoglobin (COHb) 0.4 gm% (0.0-3.0); Hemoglobin (Hb) 8.5 g/dL (12.0-16.0); O2 Tension (PaO2), arterial 92.6 mmHg (> 80.0); Potassium - ABG Lab 4.1 mmol/L (3.70-5.30); Puncture Site RBA; pH, Arterial 7.23 (7.35-7.45)
[2021-12-06] MEDS: Calcium Carbonate 500 MG TAB PO SCH (00:16)
[2021-12-06] MEDS: Amiodarone 200 MG TAB PO SCH (00:16)
[2021-12-06] MEDS: Atorvastatin Calcium 10 MG TAB PO SCH (00:16)
[2021-12-06] MEDS: Cholecalciferol 1,000 UNITS (25 MCG) TAB PO SCH (00:17)
[2021-12-06] MEDS: Ferrous Sulfate 325 MG TAB PO SCH (00:17)
[2021-12-06] MEDS: Metoprolol Tartrate 25 MG TAB PO SCH (00:17)
[2021-12-06] MEDS ORDERED: Lorazepam 2 MG/ML VIAL SLOW IVP SCH (01:30)
[2021-12-06] MEDS: Meropenem 500 MG in Sodium Chloride 0.9% 100 ML IVPB SCH ×2 (02:13→12:46)
[2021-12-06] MEDS: Octreotide Acetate 500 MCG/ML VIAL SC SCH (02:53)
[2021-12-06] MEDS: Sodium Bicarbonate 75 MEQ, Admixture Fee 1 EACH in Dextrose 5% in Water 500 ML IV SCH (04:32)
[2021-12-06 04:37] VITALS: BP 119/55; TEMP 98
[2021-12-06 05:26] LABS: Anion Gap 26 mmol/L (10-20); BUN (Urea Nitrogen) 58 mg/dL (9.8-20.1); Calc. Creatinine Clearance 13 mL/min (70-130); Calcium 9.3 mg/dL (7.8-10.44); Carbon Dioxide 14 mmol/L (23-31); Chloride 110 mmol/L (98-107); Potassium 4.3 mmol/L (3.5-5.1); Sodium 146 mmol/L (136-145)
[2021-12-06 05:33] LABS: Glucose 53 mg/dL (80-115)
[2021-12-06 05:44] LABS: Hemoglobin 7.2 g/dL (12.0-15.5); Mean Corpuscular HGB CONC 27.6 g/dL (32.0-36.0); Mean Corpuscular Hemoglobin 24.4 pg (27.0-33.0); Mean Corpuscular Volume 88.5 fl (81.6-98.3); Platelet Count 53 10x3/uL (150-450); RBC Distribution Width 24.6 % (11.5-14.5); Red Blood Cell (RBC) Count 2.95 10x6/uL (3.90-5.03); White Blood Cell (WBC) Count 5.4 10x3/uL (3.5-10.5)
[2021-12-06] MEDS ORDERED: Dextrose 50% Abboject 50 ML SYRINGE ONE (10:30)
[2021-12-06] MEDS ORDERED: VANCOMYCIN IVPB PRN (10:38)
[2021-12-06] MEDS ORDERED: [UNRECOGNIZED DRUG - OTHER] IVPB PRN (10:38)
[2021-12-06] MEDS ORDERED: Vancomycin 1 GM in Premix Bag 1 BAG IVPB PRN (10:44)
[2021-12-06] MEDS ORDERED: Dextrose 10% in Water 1,000 ML IV SCH (10:45)
[2021-12-06] MEDS ORDERED: VANCOMYCIN 1.25 GM/250 ML BAG 1.25 GM in Premix Bag 1 BAG IVPB SCH (11:00)
[2021-12-06 12:51] LABS: INR-International Normal Ratio 2.6; Prothrombin Time 27.2 sec (9.5-12.1)
[2021-12-06] MEDS ORDERED: Norepinephrine 8 MG/0.9% NS 250 ML ONE (16:09)
[2021-12-06] MEDS ORDERED: Norepinephrine 8 MG/0.9% NS 250 ML IVPB SCH (16:15)
[2021-12-06 18:57] LABS: Hep B Surf Ag Non-Reactive S/CO (NonReactive)
[2021-12-06 19:02] LABS: HBSAg Index 0.22 S/CO (0-0.99)
[2021-12-06] MEDS ORDERED: Cefepime 2 GM in Sodium Chloride 0.9% 100 ML IVPB SCH (21:00)
[2021-12-06] MEDS ORDERED: Vancomycin 1 GM in Premix Bag 1 BAG IVPB SCH (21:00)
[2021-12-06] MEDS ORDERED: Lorazepam 2 MG/ML VIAL SLOW IVP PRN (22:41)
[2021-12-06] MEDS ORDERED: Morphine 4 MG/ML VIAL SLOW IVP PRN (22:47)
[2021-12-07 03:44] LABS: HBSAB Concentration 9.84 mIU/mL; Hep B Surf AB Indeterminate (NonReactive)
[2021-12-07] MEDS ORDERED: Rifaximin 550 MG TAB PER TUBE SCH (09:00)
== END 2021-12-06 23:10 | disposition expired | DRG 441 ==
LOC: CSHERS 15:45 → CSHTELE 23:48 → CSHIMCU 12-05 22:58
PROVIDERS: ADMIT Family Medicine; ATTEND Hospitalist
PROC: 30233J1 Transfusion of Nonautologous Serum Albumin into Peripheral Vein, Percutaneous Approach (ICD-10-PCS; 2021-11-23)
PROC: 30233N1 Transfusion of Nonautologous Red Blood Cells into Peripheral Vein, Percutaneous Approach (ICD-10-PCS; 2021-11-25)
PROC: 5A09357 Assistance with Respiratory Ventilation, Less than 24 Consecutive Hours, Continuous Positive Airway Pressure (ICD-10-PCS; 2021-12-05)
PROC: 02HV33Z Insertion of Infusion Device into Superior Vena Cava, Percutaneous Approach (ICD-10-PCS; principal; 2021-12-06)
PROC: B548ZZA Ultrasonography of Superior Vena Cava, Guidance (ICD-10-PCS; 2021-12-06)
PROC: 06HY33Z Insertion of Infusion Device into Lower Vein, Percutaneous Approach (ICD-10-PCS; 2021-12-06)
PROC: 5A1D70Z Performance of Urinary Filtration, Intermittent, Less than 6 Hours Per Day (ICD-10-PCS; 2021-12-06)
PROC: 3E033XZ Introduction of Vasopressor into Peripheral Vein, Percutaneous Approach (ICD-10-PCS; 2021-12-06)
DX: K76.7 Hepatorenal syndrome (principal); U07.1 COVID-19; J96.01 Acute respiratory failure with hypoxia; I50.33 Acute on chronic diastolic (congestive) heart failure; N18.6 End stage renal disease; N17.9 Acute kidney failure, unspecified; K76.6 Portal hypertension; E87.2 Acidosis; R44.2 Other hallucinations; E87.0 Hyperosmolality and hypernatremia; G93.40 Encephalopathy, unspecified; I13.2 Hypertensive heart and chronic kidney disease with heart failure and with stage 5 chronic kidney disease, or end stage renal disease; Z51.5 Encounter for palliative care; E03.9 Hypothyroidism, unspecified; J44.9 Chronic obstructive pulmonary disease, unspecified; I48.0 Paroxysmal atrial fibrillation; D63.1 Anemia in chronic kidney disease; K70.30 Alcoholic cirrhosis of liver without ascites; Z96.612 Presence of left artificial shoulder joint; F41.9 Anxiety disorder, unspecified; E87.5 Hyperkalemia; E78.5 Hyperlipidemia, unspecified; K21.9 Gastro-esophageal reflux disease without esophagitis; Z96.652 Presence of left artificial knee joint; F32.A Depression, unspecified; F43.10 Post-traumatic stress disorder, unspecified; E86.0 Dehydration; K72.90 Hepatic failure, unspecified without coma; E87.8 Other disorders of electrolyte and fluid balance, not elsewhere classified; D69.6 Thrombocytopenia, unspecified; E83.42 Hypomagnesemia; E16.2 Hypoglycemia, unspecified; I95.9 Hypotension, unspecified; Z66 Do not resuscitate; Z88.0 Allergy status to penicillin; Z88.8 Allergy status to other drugs, medicaments and biological substances; Z79.899 Other long term (current) drug therapy; Z79.01 Long term (current) use of anticoagulants; Z90.49 Acquired absence of other specified parts of digestive tract; Z89.612 Acquired absence of left leg above knee; Z98.890 Other specified postprocedural states; Z86.711 Personal history of pulmonary embolism
CPT/HCPCS: 36415; 36416; 36430; 36600; 51702; 71045; 74018; 74176; 76770; 80048; 80053; 81003; 82140; 82274; 82805; 83605; 83735; 84100; 84443; 85025; 85027; 85610; 85730; 86706; 86850; 86900; 86901; 87040; 87340; 90935; 93005; 93010; 94640; 94660; 94664; 94760; 94762; G0257; J0360; J1940; J1956; J2185; J2270; J2354; J2550; J3370; J3475; J3480; J3490; J7042; J7050; J7070; J7611; J7620; P9016; P9047; U0002